=== PATIENT | female | born 1985 | race Caucasian/White ===

== ENCOUNTER 2018-10-30 13:23 | Emergency (ER) | payer OTHER ==
[2018-10-30] MEDS ORDERED: Sodium Chloride 0.9% 1,000 ML IV ONE (13:37)
[2018-10-30] MEDS ORDERED: Ketorolac 30 MG/ML SDV IVPUSH ONE (13:45)
--- NOTE | 2018-10-30 13:51 | EDM.PDOC ---
ED HPI GENERAL MEDICAL PROBLEM - General Chief Complaint: Abdominal Pain Stated Complaint: ABD PAIN Time Seen by Provider: 10/30/18 13:25 Source of Information: Reports: Patient History Limitations: Reports: No Limitations - History of Present Illness INITIAL COMMENTS - FREE TEXT/NARRATIVE: HISTORY AND PHYSICAL: History of present illness: Patient is a 33-year-old female presents to the ED today with concern of right lower quadrant pain. Patient states over the past week she has noticed a dull pain in her right side and starting today the pain is a 10 out of 10. Patient states she's also had diarrhea since the onset of symptoms and is having it every couple hours. Patient states she's felt nauseous and has vomited a few times today. Patient states she does have her gallbladder removed but denies any other abdominal surgeries. Patient states she has a history of tubal ligation. Patient has a history of type 2 diabetes, anxiety, and depression but denies any other health history. Patient states the last time she ate was dinner last night. Patient states she has not been able to eat today. Patient denies fever, chills, chest pain, shortness of breath, or cough. Denies headache, neck stiff ness, change in vision, syncope, or near syncope. Denies dysuria. Has not noted any blood in urine or stool. Patient has been eating and drinking appropriately until today. Review of systems: As per history of present illness and below otherwise all systems reviewed and negative. Past medical history: As per history of present illness and as reviewed below otherwise noncontributory. Surgical history: As per history of present illness and as reviewed below otherwise noncontributory. Social history: See social history for further information Family history: As per history of present illness and as reviewed below otherwise noncontributory. Physical exam: General: Patient is alert, oriented, and in no acute distress. Patient laying comfortably on exam table. Patient is tearful on exam holding her right lower abdomen. HEENT: Atraumatic, normocephalic, pupils equal and reactive bilaterally, negative for conjunctival pallor or scleral icterus, mucous membranes moist, TMs normal bilaterally, throat clear, neck supple, nontender, trachea midline. No drooling or trismus noted. No meningeal signs. No hot potato voice noted. Lungs: Clear to auscultation, breath sounds equal bilaterally, chest nontender. Heart: S1S2, regular rate and rhythm without overt murmur Abdomen: Obese, Soft, nondistended. Moderate pain to palpation of the right lower quadrant with positive rebound tenderness. Negative for masses or hepatosplenomegaly. Negative for costovertebral tenderness. Surgical scars consistent with surgical history. Pelvis: Stable nontender. Genitourinary: Deferred. Rectal: Deferred. Skin: Intact, warm, dry. No lesions or rashes noted. Extremities: Atraumatic, negative for cords or calf pain. Neurovascular unremarkable. Neuro: Awake, alert, oriented. Cranial nerves II through XII unremarkable. Cerebellum unremarkable. Motor and sensory unremarkable throughout. Exam nonfocal. Notes: Dr. Arias verbally involved in patient care. Offered patient admission for observation, serial abdominal exams, but patient declines. Voices understanding and is agreeable to plan of care. Denies any further questions or concerns at this time. Diagnostics: CBC, CMP, lipase, UA, urine hCG, abdominal pelvic CT, stool culture, C. difficile, ova and parasite Therapeutics: Saline, Toradol, morphine Prescription: Diclofenac Impression: RLQ pain unspecified Plan: 1. Take medication as prescribed. You can also use Tylenol as directed for pain and discomfort. 2. Follow-up with your primary care provider as discussed. Return to the ED as needed and as discussed. Definitive disposition and diagnosis as appropriate pending reevaluation and review of above. RLQ Pain Score (Numeric/FACES): 8 - Related Data Allergies Allergy/AdvReac Type Severity Reaction Status Date / Time No Known Allergies Allergy Verified 10/30/18 13:31 Home Meds: Home Meds ALPRAZolam 2 mg PO BID 10/30/18 [History] Acetaminophen with Codeine [Tylenol with Codeine #3 Tablet] 1 - 2 tab PO Q4H PRN 10/30/18 [History] Escitalopram [Lexapro] 10 mg PO DAILY 10/30/18 [History] metFORMIN [Glucophage XR] 2 tab PO DAILY 10/30/18 [History] Past Medical History Psychiatric History: Reports: Anxiety, Depression - Past Surgical History GI Surgical History: Reports: Cholecystectomy Female Surgical History: Reports: Section, Tubal Ligation, Other ( See Below) Other Female Surgeries/Procedures: ovarian cyst Social & Family History - Family History Family Medical History: Noncontributory - Tobacco Use Smoking Status *Q: Current Every Day Smoker Years of Tobacco use: 20 Packs/Tins Daily: 0.5 - Recreational Drug Use Recreational Drug Use: No ED ROS GENERAL - Review of Systems Review Of Systems: ROS reveals no pertinent complaints other than HPI. ED EXAM, GI/ABD - Physical Exam Exam: See Below (See dictation) Course - Vital Signs Last Recorded V/S: Last Vital Signs Temp 36.8 C 10/30/18 14:32 Pulse 81 10/30/18 14:32 Resp 20 10/30/18 13:29 BP 149/82 H 10/30/18 13:29 Pulse Ox 97 10/30/18 14:32 - Orders/Labs/Meds Orders: Active Orders 24 hr Category Date Time Status CDIFF TOX A+B [OP] Stat Lab 10/30/18 13:47 Ordered CULTURE STOOL + CAMPY+SHIGATOX [RM] Stat Lab 10/30/18 13:47 Ordered OVA & PARASITES BY IMMUNOASSAY [MREF] Stat Lab 10/30/18 13:47 Ordered Labs: Laboratory Tests 10/30/18 10/30/18 10/30/18 Range/Units 03:35 03:35 15:10 WBC 12.44 H (4.0-11.0) K/uL RBC 4.57 (4.30-5.90) M/uL Hgb 14.1 (12.0-16.0) g/dL Hct 42.0 (36.0-46.0) % MCV 91.9 (80.0-98.0) fL MCH 30.9 (27.0-32.0) pg MCHC 33.6 (31.0-37.0) g/dL RDW Std Deviation 47.1 (28.0-62.0) fl RDW Coeff of Moses 14 (11.0-15.0) % Plt Count 284 (150-400) K/uL MPV 10.60 (7.40-12.00) fL Neut % (Auto) 60.4 (48.0-80.0) % Lymph % (Auto) 29.8 (16.0-40.0) % Swisher % (Auto) 8.0 (0.0-15.0) % Eos % (Auto) 1.4 (0.0-7.0) % Baso % (Auto) 0.4 (0.0-1.5) % Neut # (Auto) 7.5 H (1.4-5.7) K/uL Lymph # (Auto) 3.7 H (0.6-2.4) K/uL Swisher # (Auto) 1.0 H (0.0-0.8) K/uL Eos # (Auto) 0.2 (0.0-0.7) K/uL Baso # (Auto) 0.1 (0.0-0.1) K/uL Nucleated RBC % 0.0 /100WBC Nucleated RBCs # 0 K/uL Sodium 136 (136-145) mmol/L Potassium 4.2 (3.5-5.1) mmol/L Chloride 102 (98-107) mmol/L Carbon Dioxide 22.1 (21.0-32.0) mmol/L BUN 7 (7.0-18.0) mg/dL Creatinine 0.8 (0.6-1.0) mg/dL Est Cr Clr Drug Dosing 79.11 mL/min Estimated GFR (MDRD) > 60.0 ml/min Glucose 97 (74-106) mg/dL Calcium 9.0 (8.5-10.1) mg/dL Total Bilirubin 0.3 (0.2-1.0) mg/dL AST 23 (15-37) IU/L ALT 52 (14-63) IU/L Alkaline Phosphatase 77 (46-116) U/L Total Protein 8.1 (6.4-8.2) g/dL Albumin 4.0 (3.4-5.0) g/dL Globulin 4.1 H (2.6-4.0) g/dL Albumin/Globulin Ratio 1.0 (0.9-1.6) Lipase 74 (73-393) U/L Urine Color YELLOW Urine Appearance CLEAR Urine pH 6.0 (5.0-8.0) Ur Specific Winchester <= 1.005 (1.001-1.035) Urine Protein NEGATIVE (NEGATIVE) mg/dL Urine Glucose (UA) NEGATIVE (NEGATIVE) mg/dL Urine Ketones NEGATIVE (NEGATIVE) mg/dL Urine Occult Blood NEGATIVE (NEGATIVE) Urine Nitrite NEGATIVE (NEGATIVE) Urine Bilirubin NEGATIVE (NEGATIVE) Urine Urobilinogen 0.2 (<2.0) EU/dL Ur Leukocyte Esterase NEGATIVE (NEGATIVE) Urine HCG, Qual (NEGATIVE) 10/30/18 Range/Units 15:10 WBC (4.0-11.0) K/uL RBC (4.30-5.90) M/uL Hgb (12.0-16.0) g/dL Hct (36.0-46.0) % MCV (80.0-98.0) fL MCH (27.0-32.0) pg MCHC (31.0-37.0) g/dL RDW Std Deviation (28.0-62.0) fl RDW Coeff of Moses (11.0-15.0) % Plt Count (150-400) K/uL MPV (7.40-12.00) fL Neut % (Auto) (48.0-80.0) % Lymph % (Auto) (16.0-40.0) % Swisher % (Auto) (0.0-15.0) % Eos % (Auto) (0.0-7.0) % Baso % (Auto) (0.0-1.5) % Neut # (Auto) (1.4-5.7) K/uL Lymph # (Auto) (0.6-2.4) K/uL Swisher # (Auto) (0.0-0.8) K/uL Eos # (Auto) (0.0-0.7) K/uL Baso # (Auto) (0.0-0.1) K/uL Nucleated RBC % /100WBC Nucleated RBCs # K/uL Sodium (136-145) mmol/L Potassium (3.5-5.1) mmol/L Chloride (98-107) mmol/L Carbon Dioxide (21.0-32.0) mmol/L BUN (7.0-18.0) mg/dL Creatinine (0.6-1.0) mg/dL Est Cr Clr Drug Dosing mL/min Estimated GFR (MDRD) ml/min Glucose (74-106) mg/dL Calcium (8.5-10.1) mg/dL Total Bilirubin (0.2-1.0) mg/dL AST (15-37) IU/L ALT (14-63) IU/L Alkaline Phosphatase (46-116) U/L Total Protein (6.4-8.2) g/dL Albumin (3.4-5.0) g/dL Globulin (2.6-4.0) g/dL Albumin/Globulin Ratio (0.9-1.6) Lipase (73-393) U/L Urine Color Urine Appearance Urine pH (5.0-8.0) Ur Specific W[place]ster (1.001-1.035) Urine Protein (NEGATIVE) mg/dL Urine Glucose (UA) (NEGATIVE) mg/dL Urine Ketones (NEGATIVE) mg/dL Urine Occult Blood (NEGATIVE) Urine Nitrite (NEGATIVE) Urine Bilirubin (NEGATIVE) Urine Urobilinogen (<2.0) EU/dL Ur Leukocyte Esterase (NEGATIVE) Urine HCG, Qual NEGATIVE (NEGATIVE) Meds: Medications Discontinued Medications Generic Name Dose Route Start Last Admin Trade Name Melissa PRN Reason Stop Dose Admin Sodium Chloride 1,000 mls @ 999 mls/hr 10/30/18 13:37 10/30/18 14:03 Normal Saline IV 10/30/18 14:37 999 mls/hr BOLUS ONE Administration Ketorolac Tromethamine 30 mg 10/30/18 13:45 10/30/18 14:03 Toradol IVPUSH 10/30/18 13:46 30 mg ONETIME ONE Administration Morphine Sulfate 2 mg 10/30/18 15:02 10/30/18 15:13 Morphine IVPUSH 10/30/18 15:03 2 mg ONETIME ONE Administration Departure - Departure Time of Disposition: 15:35 Disposition: Home, Self-Care 01 Clinical Impression: Right lower quadrant abdominal pain - Discharge Information Referrals: PCP,None [Primary Care Provider] - Forms: ED Department Discharge Additional Instructions: The following information is given to patients seen in the emergency department who are being discharged to home. This information is to outline your options for follow-up care. We provide all patients seen in our emergency department with a follow-up referral. The need for follow-up, as well as the timing and circumstances, are variable depending upon the specifics of your emergency department visit. If you don't have a primary care physician on staff, we will provide you with a referral. We always advise you to contact your personal physician following an emergency department visit to inform them of the circumstance of the visit and for follow-up with them and/or the need for any referrals to a consulting specialist. The emergency department will also refer you to a specialist when appropriate. This referral assures that you have the opportunity for follow-up care with a specialist. All of these measure are taken in an effort to provide you with optimal care, which includes your follow-up. Under all circumstances we always encourage you to contact your private physician who remains a resource for coordinating your care. When calling for follow-up care, please make the office aware that this follow-up is from your recent emergency room visit. If for any reason you are refused follow-up, please contact the [facility] Emergency Department at and asked to speak to the emergency department charge nurse. [facility] [address] [place] [address] [facility] [address] [place] [id number] 1. Take medication as prescribed. You can also use Tylenol as directed for pain and discomfort. 2. Follow-up with your primary care provider as discussed. Return to the ED as needed and as discussed. - My Orders Last 24 Hours: My Active Orders 10/30/18 13:47 CDIFF TOX A+B [OP] Stat CULTURE STOOL + CAMPY+SHIGATOX [RM] Stat OVA & PARASITES BY IMMUNOASSAY [MREF] Stat - Assessment/Plan Last 24 Hours: My Active Orders 10/30/18 13:47 CDIFF TOX A+B [OP] Stat CULTURE STOOL + CAMPY+SHIGATOX [RM] Stat OVA & PARASITES BY IMMUNOASSAY [MREF] Stat
[2018-10-30 14:18] LABS: CHLORIDE,CL 102 mmol/L (98-107); SODIUM,NA 136 mmol/L (136-145)
[2018-10-30] MEDS ORDERED: Morphine 2 MG/ML Syringe IVPUSH ONE (15:02)
--- NOTE | 2018-10-30 15:23 | CT ---
INDICATION: Right lower quadrant pain TECHNIQUE: CT abdomen and pelvis acquired with 100 cc Isovue 370 IV contrast. COMPARISON: None FINDINGS: Lower chest: Unremarkable. Liver: Unremarkable. Spleen: Unremarkable. Pancreas: Unremarkable. Gallbladder and bile ducts: S/p cholecystectomy. Adrenal glands: Unremarkable. Kidneys: Unremarkable. GI tract: Unremarkable. Appendix is not visualized but no inflammatory changes seen in the right lower quadrant. Vascular structures: Unremarkable. Lymph nodes: Unremarkable. Miscellaneous: Small fat containing umbilical hernia. No free air or significant free fluid. Pelvic Organs: Unremarkable. Bones: Unremarkable for age. IMPRESSION: The appendix is not visualized but no inflammatory changes seen in the right lower quadrant. No etiology seen to explain right lower quadrant pain. Status post cholecystectomy. Please note that all CT scans at this facility use dose modulation, iterative reconstruction, and/or weight-based dosing when appropriate to reduce radiation dose to as low as reasonably achievable. Dictated by Lily Sepulveda MD @ Oct 30 2018 3:22PM Signed by Dr. Lily Sepulveda @ Oct 30 2018 3:22PM
[2018-10-30] MEDS ORDERED: Iopamidol 755 MG/ML 500 ML Multipack Bottle IVPUSH STA (19:09)
== END 2018-10-30 16:14 | disposition home or self-care (01) ==
LOC: MW.ED 13:23
DX: R10.31 Right lower quadrant pain (principal); F17.210 Nicotine dependence, cigarettes, uncomplicated; Z79.899 Other long term (current) drug therapy
CPT/HCPCS: 36415; 74177; 80053; 81003; 81025; 83690; 85025; 96361; 96374; 96375; 99284; J1885; J2270; J7040; Q9967; 99283

== ENCOUNTER 2019-03-19 14:25 | Emergency (ER) | payer OTHER ==
--- NOTE | 2019-03-19 14:37 | EDM.PDOC ---
ED HPI GENERAL MEDICAL PROBLEM - General Chief Complaint: Upper Extremity Injury/Pain Stated Complaint: INJURED RT ARM Time Seen by Provider: 03/19/19 14:27 Source of Information: Reports: Patient History Limitations: Reports: No Limitations - History of Present Illness INITIAL COMMENTS - FREE TEXT/NARRATIVE: HISTORY AND PHYSICAL: History of present illness: Patient is a 33-year-old female presenting to the emergency room for complaints of "right elbow pain". Patient states that she works at [employer] and while at work this afternoon she was carrying in an "82 inch TV, tripped, and fell on my right elbow/arm". Patient denies hitting her head or loss of consciousness. Patient currently rates her pain in her right arm and elbow at a 6 out of 10, describing it as "aching". Movement aggravates the pain, while keeping her arm in a fixed position stabilizes the pain. Patient denies chance of that she has had "a tubal". Patient denies any fever, chills, headache, change in vision, syncope or near syncope. Denies any chest pain, back pain, shortness of breath or cough. Denies any abdominal pain, nausea, vomiting, diarrhea, constipation or dysuria. Has not noted any blood in urine or stool. Patient has been eating and drinking appropriately. Review of systems: As per history of present illness and below otherwise all systems reviewed and negative. Past medical history: As per history of present illness and as reviewed below otherwise noncontributory. Surgical history: As per history of present illness and as reviewed below otherwise noncontributory. Social history: See social history for further information Family history: As per history of present illness and as reviewed below otherwise noncontributory. Physical exam: General: Well-developed and well-nourished 33-year-old female. Alert and oriented. Nontoxic appearing and no acute distress. Vital signs have been reviewed by me. HEENT: Atraumatic, normocephalic, pupils equal and reactive bilaterally, negative for conjunctival pallor or scleral icterus, mucous membranes moist, trachea midline. No drooling or trismus noted. No meningeal signs. No hot potato voice noted. Lungs: Clear to auscultation, breath sounds equal bilaterally, chest nontender. Heart: S1S2, regular rate and rhythm without overt murmur Abdomen: Soft, nondistended, nontender. Negative for masses. Negative for costovertebral tenderness. Pelvis: Stable nontender. Skin: No lesions or rashes noted. Minor bruising to the right elbow approximately the size of a quarter, with localized soft tissue swelling. Extremities: Limited ROM of the right elbow due to pain, pinpoint tenderness at the elbow and just distal to the olecranon. Moves all other extremities per self without difficulty or deficits. Neurovascular unremarkable. Neuro: Awake, alert, oriented. Cranial nerves II through XII unremarkable. Cerebellum unremarkable. Motor and sensory unremarkable throughout. Exam nonfocal. Notes: X-ray shows a small bony density off the coroniod process. Uncertain if this is old or acute. This finding was shared with the patient. She was given a sling and instructions to follow-up with the orthopedic provider. Supportive care measures were reviewed and discussed. Voices understanding and is agreeable to plan of care. Denies any further questions or concerns at this time. Diagnostics: Elbow and Forearm x-ray Therapeutics: Sling Prescription: Toradol (#15) Impression: Right elbow injury Plan: 1. Rest, ice, elevate the affected extremity. Please wear the splint as directed. 2. Tylenol and/or Ibuprofen as needed for pain management. 3. Follow up with the Orthopedic provider as we discussed. Return to the ED as needed and as discussed. Definitive disposition and diagnosis as appropriate pending reevaluation and review of above. right arm Pain Score (Numeric/FACES): 8 - Related Data Allergies Allergy/AdvReac Type Severity Reaction Status Date / Time No Known Allergies Allergy Verified 03/19/19 14:29 Home Meds: Home Meds ALPRAZolam 2 mg PO BID 10/30/18 [History] Escitalopram [Lexapro] 10 mg PO DAILY 10/30/18 [History] metFORMIN [Glucophage XR] 2 tab PO DAILY 10/30/18 [History] Past Medical History Psychiatric History: Reports: Anxiety, Depression - Past Surgical History GI Surgical History: Reports: Cholecystectomy Female Surgical History: Reports: Section, Tubal Ligation, Other ( See Below) Other Female Surgeries/Procedures: ovarian cyst Social & Family History - Family History Family Medical History: Noncontributory Review of Systems - Review of Systems Review Of Systems: ROS reveals no pertinent complaints other than HPI. ED EXAM, GENERAL - Physical Exam Exam: See Below (See dictation) Course - Vital Signs Last Recorded V/S: Last Vital Signs Temp 96.8 F 03/19/19 14:30 Pulse 94 03/19/19 14:30 Resp 18 03/19/19 14:30 BP 123/82 03/19/19 14:30 Pulse Ox 99 03/19/19 14:30 - Orders/Labs/Meds Meds: Medications Discontinued Medications Generic Name Dose Route Start Last Admin Trade Name Freq PRN Reason Stop Dose Admin Ketorolac Tromethamine 60 mg 03/19/19 15:07 03/19/19 15:22 Toradol IM 03/19/19 15:08 60 mg ONETIME ONE Administration Departure - Departure Time of Disposition: 15:43 Disposition: Home, Self-Care 01 Clinical Impression: Injury of right elbow Qualifiers: Encounter type: initial encounter Qualified Code(s): S59.901A - Unspecified injury of right elbow, initial encounter - Discharge Information Referrals: Devante Jorgensen MD [Primary Care Provider] - Forms: ED Department Discharge Additional Instructions: The following information is given to patients seen in the emergency department who are being discharged to home. This information is to outline your options for follow-up care. We provide all patients seen in our emergency department with a follow-up referral. The need for follow-up, as well as the timing and circumstances, are variable depending upon the specifics of your emergency department visit. If you don't have a primary care physician on staff, we will provide you with a referral. We always advise you to contact your personal physician following an emergency department visit to inform them of the circumstance of the visit and for follow-up with them and/or the need for any referrals to a consulting specialist. The emergency department will also refer you to a specialist when appropriate. This referral assures that you have the opportunity for follow-up care with a specialist. All of these measure are taken in an effort to provide you with optimal care, which includes your follow-up. Under all circumstances we always encourage you to contact your private physician who remains a resource for coordinating your care. When calling for follow-up care, please make the office aware that this follow-up is from your recent emergency room visit. If for any reason you are refused follow-up, please contact the [facility] Emergency Department at and asked to speak to the emergency department charge nurse. [facility] [address] [place] [address] [id number] [facility] Professional [facility] [address] [place] [address], [address] [place] [address] 1. Rest, ice, elevate the affected extremity. Please wear the sling as directed. 2. Tylenol and/or Ibuprofen as needed for pain management. 3. Follow up with the Orthopedic provider as we discussed. Return to the ED as needed and as discussed.
[2019-03-19] MEDS ORDERED: Ketorolac 60 MG/2 ML SDV IM ONE (15:07)
--- NOTE | 2019-03-19 15:34 | CR ---
Right elbow: Three views of the right elbow were obtained. Comparison: No prior right elbow exam. Joint spaces are preserved. Small bony density is seen off the coronoid process. Uncertain if this is acute or old. No additional fracture or other bony abnormality is seen. No joint effusion is seen. Impression: 1. Small bony density off the coronoid process. As mentioned above, uncertain if this is old or acute. 2. Other portions of the right elbow study are unremarkable. Diagnostic code #3 MTDD
--- NOTE | 2019-03-19 15:35 | CR ---
Right forearm: Two views of the right forearm were obtained. Comparison: No previous forearm study. Small bony density is again noted off the coronoid process. No acute fracture or other bony abnormality is seen. Impression: 1. Small bony density off the coronoid process as described on elbow study. 2. Right forearm study is otherwise unremarkable. Diagnostic code #2 MTDD
== END 2019-03-19 16:05 | disposition home or self-care (01) ==
LOC: MW.ED 14:25
DX: S59.901A Unspecified injury of right elbow, initial encounter (principal); F41.9 Anxiety disorder, unspecified; F32.9 Major depressive disorder, single episode, unspecified; Z79.899 Other long term (current) drug therapy; W01.0XXA Fall on same level from slipping, tripping and stumbling without subsequent striking against object, initial encounter; Y93.89 Activity, other specified; Y92.89 Other specified places as the place of occurrence of the external cause; Y99.0 Civilian activity done for income or pay
CPT/HCPCS: 73080; 73090; 96372; 99283; J1885

== ENCOUNTER 2019-03-20 16:13 | Emergency (ER) | payer OTHER ==
[2019-03-20] MEDS ORDERED: traMADol 50 MG Tab PO ONE (17:17)
--- NOTE | 2019-03-20 17:19 | EDM.PDOC ---
ED HPI GENERAL MEDICAL PROBLEM - General Chief Complaint: Upper Extremity Injury/Pain Stated Complaint: RIGHT SHOULDEER PAIN Time Seen by Provider: 03/20/19 16:58 Source of Information: Reports: Patient History Limitations: Reports: No Limitations - History of Present Illness INITIAL COMMENTS - FREE TEXT/NARRATIVE: HISTORY AND PHYSICAL: History of present illness: Patient is a 33-year-old female who presents to the ED today with concern of right arm pain and pain management. Patient was seen and evaluated in the ED yesterday after a fall that occurred when patient was at work. Patient was put in a splint and instructed to follow-up with an orthopedic provider and was given Toradol for pain management. 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 Patient states she's taken 3 doses of Toradol today with only mild relief of symptoms. Patient states she did try to ice her arm once last night but has not continued to ice the arm. Patient denies taking anything else for pain management at this time. Patient denies any new or change in symptoms. Patient denies any new injury or trauma to the arm. Patient states she did call to set up an appointment with the orthopedic provider and has an appointment in 2 weeks. Patient states she did ask them for pain medication but they were unwilling to give her pain medication at this time. Patient denies fever, chills, chest pain, shortness of breath, or cough. Denies headache, neck stiff ness, change in vision, syncope, or near syncope. Denies nausea, vomiting, abdominal pain, diarrhea, constipation, or dysuria. Has not noted any blood in urine or stool. Patient has been eating and drinking appropriately. Review of systems: As per history of present illness and below otherwise all systems reviewed and negative. Past medical history: As per history of present illness and as reviewed below otherwise noncontributory. Surgical history: As per history of present illness and as reviewed below otherwise noncontributory. Social history: See social history for further information Family history: As per history of present illness and as reviewed below otherwise noncontributory. Physical exam: General: Patient is alert, oriented, and in no acute distress. Patient sitting comfortably on exam table. HEENT: Atraumatic, normocephalic, pupils equal and reactive bilaterally, negative for conjunctival pallor or scleral icterus, mucous membranes moist, TMs normal bilaterally, throat clear, neck supple, nontender, trachea midline. No drooling or trismus noted. No meningeal signs. No hot potato voice noted. Lungs: Clear to auscultation, breath sounds equal bilaterally, chest nontender. Heart: S1S2, regular rate and rhythm without overt murmur Abdomen: Soft, nondistended, nontender. Negative for masses or hepatosplenomegaly. Negative for costovertebral tenderness. Pelvis: Stable nontender. Genitourinary: Deferred. Rectal: Deferred. Skin: Intact, warm, dry. No lesions or rashes noted. Extremities: Negative for cords or calf pain. Neurovascular unremarkable. Patient does have a shoulder sling in place of the right upper extremity. Some mild edema of the right hand. Radial pulses intact via Doppler with capillary refill less than 2 seconds of the right upper extremity. Neuro: Awake, alert, oriented. Cranial nerves II through XII unremarkable. Cerebellum unremarkable. Motor and sensory unremarkable throughout. Exam nonfocal. Notes: Discussed the importance for follow-up with an orthopedic provider. Voices understanding and is agreeable to plan of care. Denies any further questions or concerns at this time. Diagnostics: None Therapeutics: Tramadol Prescription: None Impression: Encounter for pain management Plan: 1. Rest, ice, elevate the affected extremity. You can apply ice 15 minutes on, 15 minutes off. Keep the arm in the sling and do not continue to use the arm and Tylenol follow-up with Ortho. 2. Tylenol as directed for pain management or discomfort. Take medication as priorly prescribed to you. 3. Follow up with the Orthopedic provider as scheduled and as discussed. Return to the ED as needed and as discussed. Definitive disposition and diagnosis as appropriate pending reevaluation and review of above. right lower arm Pain Score (Numeric/FACES): 7 - Related Data Allergies Allergy/AdvReac Type Severity Reaction Status Date / Time No Known Allergies Allergy Verified 03/20/19 16:54 Home Meds: Home Meds ALPRAZolam 2 mg PO BID 10/30/18 [History] Escitalopram [Lexapro] 10 mg PO DAILY 10/30/18 [History] metFORMIN [Glucophage XR] 2 tab PO DAILY 10/30/18 [History] Ketorolac [Toradol] 10 mg PO TID PRN #20 tab 03/19/19 [Rx] Past Medical History HEENT History: Reports: None Cardiovascular History: Reports: None Respiratory History: Reports: None Gastrointestinal History: Reports: None Genitourinary History: Reports: None [employer] 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 Musculoskeletal History: Reports: None Neurological History: Reports: None Psychiatric History: Reports: Anxiety, Depression Endocrine/Metabolic History: Reports: None Hematologic History: Reports: None Immunologic History: Reports: None Oncologic (Cancer) History: Reports: None Dermatologic History: Reports: None - Past Surgical History Head Surgeries/Procedures: Reports: None HEENT Surgical History: Reports: None Cardiovascular Surgical History: Reports: None Respiratory Surgical History: Reports: None GI Surgical History: Reports: Cholecystectomy Female Surgical History: Reports: Section, Tubal Ligation, Other ( See Below) Other Female Surgeries/Procedures: ovarian cyst Endocrine Surgical History: Reports: None Neurological Surgical History: Reports: None Musculoskeletal Surgical History: Reports: None Oncologic Surgical History: Reports: None Dermatological Surgical History: Reports: None Social & Family History - Family History Family Medical History: Noncontributory - Tobacco Use Smoking Status *Q: Current Every Day Smoker Years of Tobacco use: 14 Packs/Tins Daily: 0.5 - Caffeine Use Caffeine Use: Reports: Coffee - Recreational Drug Use Recreational Drug Use: No Review of Systems - Review of Systems Review Of Systems: ROS reveals no pertinent complaints other than HPI. ED EXAM, GENERAL - Physical Exam Exam: See Below (See dictation) Course - Vital Signs Last Recorded V/S: Last Vital Signs Temp 98.2 F 03/20/19 16:52 Pulse 84 03/20/19 16:52 Resp 18 03/20/19 16:52 BP 129/74 03/20/19 16:52 Pulse Ox 99 03/20/19 16:52 - Orders/Labs/Meds Orders: Active Orders 24 hr Category Date Time Status Shoulder Comp Rt [CR] Stat Exams 03/20/19 16:54 Stop Req Meds: Medications Discontinued Medications Generic Name Dose Route Start Last Admin Trade Name Freq PRN Reason Stop Dose Admin Tramadol HCl 50 mg 03/20/19 17:17 03/20/19 17:27 Ultram PO 03/20/19 17:18 50 mg ONETIME ONE Administration Departure - Departure Time of Disposition: 17:18 Disposition: Home, Self-Care 01 Clinical Impression: Encounter for pain management - Discharge Information Referrals: PCP,Unknown [Primary Care Provider] - Forms: ED Department Discharge Additional Instructions: The following information is given to patients seen in the emergency department who are being discharged to home. This information is to outline your options for follow-up care. We provide all patients seen in our emergency department with a follow-up referral. The need for follow-up, as well as the timing and circumstances, are variable depending upon the specifics of your emergency department visit. If you don't have a primary care physician on staff, we will provide you with a referral. We always advise you to contact your personal physician following an emergency department visit to inform them of the circumstance of the visit and for follow-up with them and/or the need for any referrals to a consulting specialist. The emergency department will also refer you to a specialist when appropriate. This referral assures that you have the opportunity for follow-up care with a specialist. All of these measure are taken in an effort to provide you with optimal care, which includes your follow-up. Under all circumstances we always encourage you to contact your private physician who remains a resource for coordinating your care. When calling for follow-up care, please make the office aware that this follow-up is from your recent emergency room visit. If for any reason you are refused follow-up, please contact the [facility] Emergency Department at and asked to speak to the emergency department charge nurse. [facility] [address] [place] [id number] [address] [facility] Professional [facility] [address] [place] [address], [address] [place] [address] Dr Plasencia, Orthopedist [facility] [address] [place] [address] Dr Newman - Dr Penaloza - Dr Moss [facility] [address] [place] [address] [facility] [address] [place], [place] [address] 1. Rest, ice, elevate the affected extremity. You can apply ice 15 minutes on, 15 minutes off. Keep the arm in the sling and do not continue to use the arm and Tylenol follow-up with Ortho. 2. Tylenol as directed for pain management or discomfort. Take medication as priorly prescribed to you. 3. Follow up with the Orthopedic provider as scheduled and as discussed. Return to the ED as needed and as discussed.
== END 2019-03-20 17:38 | disposition home or self-care (01) ==
LOC: MW.ED 16:13
DX: G89.11 Acute pain due to trauma (principal); M25.511 Pain in right shoulder; F32.9 Major depressive disorder, single episode, unspecified; F41.9 Anxiety disorder, unspecified; F17.210 Nicotine dependence, cigarettes, uncomplicated; Z79.899 Other long term (current) drug therapy
CPT/HCPCS: 99282; A9270

== ENCOUNTER 2019-09-18 11:40 | Emergency (ER) | payer OTHER ==
--- NOTE | 2019-09-18 12:02 | EDM.PDOC ---
ED HPI GENERAL MEDICAL PROBLEM - General Chief Complaint: Upper Extremity Injury/Pain Stated Complaint: LT SHOULDER PAIN Time Seen by Provider: 09/18/19 11:41 Source of Information: Reports: Patient History Limitations: Reports: No Limitations - History of Present Illness INITIAL COMMENTS - FREE TEXT/NARRATIVE: HISTORY AND PHYSICAL: History of present illness: Patient is a 34-year-old female who presents to the emergency room with complaints of left shoulder pain. 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 She has been using Tylenol and diclofenac that she has available to her at home but does not feel that the pain is improving. Besides the heavy weight in her arm she had no physical injuries such as falling or hitting anything. She does have full range of motion and denies any numbness or tingling of the affected extremity. She denies any weakness. She states that any use of her left shoulder she has increased pain and does occasionally have sharp shooting pains go down her arm. Offers no systemic complaints. Review of systems: As per history of present illness and below otherwise all systems reviewed and negative. Past medical history: As per history of present illness and as reviewed below otherwise noncontributory. Surgical history: As per history of present illness and as reviewed below otherwise noncontributory. Social history: See social history for further information Family history: As per history of present illness and as reviewed below otherwise noncontributory. Physical exam: General: Developed and well-nourished 34-year-old female. Alert and oriented. Nontoxic-appearing and in no acute distress. HEENT: Atraumatic, normocephalic, pupils equal and reactive bilaterally, negative for conjunctival pallor or scleral icterus, mucous membranes moist, trachea midline. No drooling or trismus noted. No meningeal signs. No hot potato voice noted. Lungs: Clear to auscultation, breath sounds equal bilaterally, chest nontender. Heart: S1S2, regular rate and rhythm without overt murmur Abdomen: Soft, nondistended, nontender. Skin: Intact, warm, dry. No lesions or rashes noted. Extremities: She moves all extremities per self without difficulty or deficits , able to resist and push against me with equal strength bilaterally strong hand grasp. Able to pour the can test bilaterally, although does cause some pain. Radial pulse. Cap refill less than 3 seconds neurovascular unremarkable. Neuro: Awake, alert, oriented. Cranial nerves II through XII unremarkable. Cerebellum unremarkable. Motor and sensory unremarkable throughout. Exam nonfocal. Notes: At this time I do not feel an x-ray is warranted. We will do a steroid and a muscle relaxer and like her to continue taking her diclofenac. We discussed that she may have some nerve impingement or rotator cuff involvement that will require orthopedic involvement. She is understanding that she may need an MRI if the pain does not improve, although this cannot be done in the ER today. We will give her a sling to help support the left shoulder as we are treating her for a strain. Supportive care measures were reviewed and discussed. Voices understanding and is agreeable to plan of care. Denies any further questions or concerns at this time. Diagnostics: None Therapeutics: Sling Prescription: Flexeril, Medrol Impression: Left shoulder strain Plan: 1. Rest, ice, elevate the affected extremity. Please wear the splint as directed. 2. Tylenol and/or Ibuprofen as needed for pain management. 3. Follow up with the Orthopedic provider as we discussed. Return to the ED as needed and as discussed. Definitive disposition and diagnosis as appropriate pending reevaluation and review of above. - Related Data Allergies Allergy/AdvReac Type Severity Reaction Status Date / Time No Known Allergies Allergy Verified 09/18/19 12:03 Home Meds: Home Meds ALPRAZolam 2 mg PO BID 10/30/18 [History] Escitalopram [Lexapro] 10 mg PO DAILY 10/30/18 [History] metFORMIN [Glucophage XR] 2 tab PO DAILY 10/30/18 [History] Cyclobenzaprine [Flexeril] 10 mg PO TID PRN #21 tab 09/18/19 [Rx] Diclofenac Sodium [Voltaren] 50 mg PO BID 09/18/19 [History] methylPREDNISolone [Medrol] 1 dose PO DAILY 6 Days #1 dospk 09/18/19 [Rx] Past Medical History HEENT History: Reports: None Cardiovascular History: Reports: None Respiratory History: Reports: None Gastrointestinal History: Reports: None Genitourinary History: Reports: None [employer] 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 Musculoskeletal History: Reports: None Neurological History: Reports: None Psychiatric History: Reports: Anxiety, Depression Endocrine/Metabolic History: Reports: None Hematologic History: Reports: None Immunologic History: Reports: None Oncologic (Cancer) History: Reports: None Dermatologic History: Reports: None - Past Surgical History Head Surgeries/Procedures: Reports: None HEENT Surgical History: Reports: None Cardiovascular Surgical History: Reports: None Respiratory Surgical History: Reports: None GI Surgical History: Reports: Cholecystectomy Female Surgical History: Reports: Section, Tubal Ligation, Other ( See Below) Other Female Surgeries/Procedures: ovarian cyst Endocrine Surgical History: Reports: None Neurological Surgical History: Reports: None Musculoskeletal Surgical History: Reports: None Oncologic Surgical History: Reports: None Dermatological Surgical History: Reports: None Social & Family History - Family History Family Medical History: Noncontributory - Caffeine Use Caffeine Use: Reports: Coffee Review of Systems - Review of Systems Review Of Systems: Comprehensive ROS is negative, except as noted in HPI. ED EXAM, GENERAL - Physical Exam Exam: See Below (See dictation) Course - Vital Signs Last Recorded V/S: Last Vital Signs Temp 98.0 F 09/18/19 11:59 Pulse 88 09/18/19 11:59 Resp 17 09/18/19 11:59 BP 132/75 09/18/19 11:59 Pulse Ox 98 09/18/19 11:59 - Orders/Labs/Meds Orders: Active Orders 24 hr Category Date Time Status DME for Discharge [COMM] Stat Oth 09/18/19 12:04 Ordered Departure - Departure Time of Disposition: 12:02 Disposition: Home, Self-Care 01 Clinical Impression: Left shoulder strain Qualifiers: Encounter type: initial encounter Qualified Code(s): S46.912A - Strain of unspecified muscle, fascia and tendon at shoulder and upper arm level, left arm , initial encounter - Discharge Information Prescriptions: Cyclobenzaprine [Flexeril] 10 mg PO TID PRN #21 tab PRN Reason: Muscle Spasm methylPREDNISolone [Medrol] 1 dose PO DAILY 6 Days #1 dospk Instructions: Muscle Strain, [id number] Referrals: Devante Jorgensen MD [Primary Care Provider] - Forms: ED Department Discharge Additional Instructions: The following information is given to patients seen in the emergency department who are being discharged to home. This information is to outline your options for follow-up care. We provide all patients seen in our emergency department with a follow-up referral. The need for follow-up, as well as the timing and circumstances, are variable depending upon the specifics of your emergency department visit. If you don't have a primary care physician on staff, we will provide you with a referral. We always advise you to contact your personal physician following an emergency department visit to inform them of the circumstance of the visit and for follow-up with them and/or the need for any referrals to a consulting specialist. The emergency department will also refer you to a specialist when appropriate. This referral assures that you have the opportunity for follow-up care with a specialist. All of these measure are taken in an effort to provide you with optimal care, which includes your follow-up. Under all circumstances we always encourage you to contact your private physician who remains a resource for coordinating your care. When calling for follow-up care, please make the office aware that this follow-up is from your recent emergency room visit. If for any reason you are refused follow-up, please contact the [facility] Emergency Department at and asked to speak to the emergency department charge nurse. [facility] [address] [place] [address] [place] [address] 1. Rest, ice, elevate the affected extremity. Please wear the splint as directed. 2. Tylenol as needed for pain management. Please take the prescriptions as directed. Take your home Diclofenac as prescribed, routinely with food for the next 3-5 days. Do not take any additional NSAIDs with the medication such as Aleve or Ibuprofen 3. Follow up with the Orthopedic provider as we discussed. Return to the ED as needed and as discussed. Sepsis Event Note - Focused Exam Vital Signs: Vital Signs Temp Pulse Resp BP Pulse Ox 09/18/19 11:59 98.0 F 88 17 132/75 98 Date Exam was Performed: 09/18/19 Time Exam was Performed: 12:05 - My Orders Last 24 Hours: My Active Orders 09/18/19 12:04 DME for Discharge [COMM] Stat - Assessment/Plan Last 24 Hours: My Active Orders 09/18/19 12:04 DME for Discharge [COMM] Stat
== END 2019-09-18 12:18 | disposition home or self-care (01) ==
LOC: EDBD 11:40 → MW.ED 11:40
DX: S46.912A Strain of unspecified muscle, fascia and tendon at shoulder and upper arm level, left arm, initial encounter (principal); F41.9 Anxiety disorder, unspecified; F32.9 Major depressive disorder, single episode, unspecified; Z79.84 Long term (current) use of oral hypoglycemic drugs; Z79.899 Other long term (current) drug therapy; X50.9XXA Other and unspecified overexertion or strenuous movements or postures, initial encounter; Y99.0 Civilian activity done for income or pay
CPT/HCPCS: 99283

== ENCOUNTER 2019-09-26 15:31 | Emergency (ER) | payer OTHER ==
[2019-09-26] MEDS ORDERED: Acetaminophen/HYDROcodone 325-10 MG Tab PO ONE (15:44)
--- NOTE | 2019-09-26 16:29 | EDM.PDOC ---
ED HPI GENERAL MEDICAL PROBLEM - General Chief Complaint: Upper Extremity Injury/Pain Stated Complaint: RETURNING FOR INJURED SHOULDER Time Seen by Provider: 09/26/19 15:37 - History of Present Illness INITIAL COMMENTS - FREE TEXT/NARRATIVE: 34-year-old female presents with persistent left shoulder pain after hearing and feeling a pop while lifting and moving very heavy furniture at work. She was initially seen here approximately 1 week ago and was discharged with Flexeril, ibuprofen, prednisone. She has had persistent severe pain she did follow-up with her orthopedic surgeon a few days ago. She is slated for an MRI within in 6 days. She presents due to pain not responsive to medications at home. Pain is gradually worsening it worsens now with any range of motion of the left shoulder. It does not radiate and there are no associated symptoms. - Related Data Allergies Allergy/AdvReac Type Severity Reaction Status Date / Time No Known Allergies Allergy Verified 09/18/19 12:03 Home Meds: Home Meds ALPRAZolam 2 mg PO BID 10/30/18 [History] Escitalopram [Lexapro] 10 mg PO DAILY 10/30/18 [History] metFORMIN [Glucophage XR] 2 tab PO DAILY 10/30/18 [History] Cyclobenzaprine [Flexeril] 10 mg PO TID PRN #21 tab 09/18/19 [Rx] Diclofenac Sodium [Voltaren] 50 mg PO BID 09/18/19 [History] methylPREDNISolone [Medrol] 1 dose PO DAILY 6 Days #1 dospk 09/18/19 [Rx] Hydrocodone/Acetaminophen [Hydrocodone-Acetamin 10-325 mg] 1 each PO Q6HR #20 tablet 09/26/19 [Rx] Past Medical History HEENT History: Reports: None Cardiovascular History: Reports: None Respiratory History: Reports: None Gastrointestinal History: Reports: None Genitourinary History: Reports: None 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 Musculoskeletal History: Reports: None Neurological History: Reports: None Psychiatric History: Reports: Anxiety, Depression Endocrine/Metabolic History: Reports: None Hematologic History: Reports: None Immunologic History: Reports: None Oncologic (Cancer) History: Reports: None Dermatologic History: Reports: None - Infectious Disease History Infectious Disease History: Reports: None - Past Surgical History Head Surgeries/Procedures: Reports: None HEENT Surgical History: Reports: None Cardiovascular Surgical History: Reports: None Respiratory Surgical History: Reports: None GI Surgical History: Reports: Cholecystectomy Female Surgical History: Reports: Section, Tubal Ligation, Other ( See Below) Other Female Surgeries/Procedures: ovarian cyst Endocrine Surgical History: Reports: None Neurological Surgical History: Reports: None Musculoskeletal Surgical History: Reports: None Oncologic Surgical History: Reports: None Dermatological Surgical History: Reports: None Social & Family History - Family History Family Medical History: Noncontributory - Caffeine Use Caffeine Use: Reports: Coffee Review of Systems - Review of Systems Review Of Systems: See Below Constitutional: Denies: Chills, Fever Eyes: Denies: Blurred Vision Mouth/Throat: Denies: Painful Swallowing Respiratory: Denies: Shortness of Breath Cardiovascular: Denies: Chest Pain GI/Abdominal: Denies: Abdominal Pain Musculoskeletal: Reports: Shoulder Pain ED EXAM, GENERAL - Physical Exam Exam: See Below Free Text/Narrative:: General Appearance: No acute distress, appears comfortable Skin: No rash HEENT: Normocephalic/atraumatic, sclera anicteric, mucous membranes moist Neck: Normal range of motion Musculoskeletal: 2+ left radial pulse no focal tenderness or deformity or limitation in range of motion of the left digits or wrist or elbow. Significant pain in the left shoulder but able to passively rotate the shoulder. Neurologic: Awake, alert, no obvious deficits, moving all extremities Psychiatric: Appropriate, cooperative Course - Vital Signs Last Recorded V/S: Last Vital Signs Temp 97.2 F 09/26/19 15:42 Pulse 94 09/26/19 17:10 Resp 16 09/26/19 17:10 BP 110/62 09/26/19 17:10 Pulse Ox 97 09/26/19 17:10 - Orders/Labs/Meds Meds: Medications Discontinued Medications Generic Name Dose Route Start Last Admin Trade Name Freq PRN Reason Stop Dose Admin Hydrocodone Bitart/Acetaminophen 1 tab 09/26/19 15:44 09/26/19 16:16 [place] 325-10 Mg PO 09/26/19 15:45 1 tab ONETIME ONE Administration Departure - Departure Time of Disposition: 17:40 Disposition: Home, Self-Care 01 Condition: Good Clinical Impression: Rotator cuff (capsule) sprain - Discharge Information *PRESCRIPTION DRUG MONITORING PROGRAM REVIEWED*: Not Applicable *COPY OF PRESCRIPTION DRUG MONITORING REPORT IN PATIENT MONICA: Not Applicable Prescriptions: Hydrocodone/Acetaminophen [Hydrocodone-Acetamin 10-325 mg] 1 each PO Q6HR #20 tablet Instructions: Rotator Cuff Tear Referrals: Devante Jorgensen MD [Primary Care Provider] - Forms: ED Department Discharge Additional Instructions: The following information is given to patients seen in the emergency department who are being discharged to home. This information is to outline your options for follow-up care. We provide all patients seen in our emergency department with a follow-up referral. The need for follow-up, as well as the timing and circumstances, are variable depending upon the specifics of your emergency department visit. If you don't have a primary care physician on staff, we will provide you with a referral. We always advise you to contact your personal physician following an emergency department visit to inform them of the circumstance of the visit and for follow-up with them and/or the need for any referrals to a consulting specialist. The emergency department will also refer you to a specialist when appropriate. This referral assures that you have the opportunity for follow-up care with a specialist. All of these measure are taken in an effort to provide you with optimal care, which includes your follow-up. Under all circumstances we always encourage you to contact your private physician who remains a resource for coordinating your care. When calling for follow-up care, please make the office aware that this follow-up is from your recent emergency room visit. If for any reason you are refused follow-up, please contact the [facility] Emergency Department at and asked to speak to the emergency department charge nurse. [facility] [address] [place] [id number] [id number] 1. Rest, ice, elevate the affected extremity. Please wear the sling as directed. 2. Tylenol and/or Ibuprofen as needed for pain management. [place] for moderate to severe pain, medication may cause drowsiness so do not take it while driving or needing to be functioning outside of the house. 3. Follow up with the Orthopedic provider as we discussed. Return to the ED as needed and as discussed. Sepsis Event Note - Evaluation Sepsis Screening Result: No Definite Risk - Focused Exam Vital Signs: Vital Signs Temp Pulse Resp BP Pulse Ox 09/26/19 17:10 94 16 110/62 97 09/26/19 16:16 101 H 20 97 09/26/19 15:42 97.2 F 111 H 16 132/63 98 Date Exam was Performed: 09/26/19 Time Exam was Performed: 17:40
== END 2019-09-26 17:10 | disposition home or self-care (01) ==
LOC: MW.ED 15:31 → EDBD 15:31 → MW.ED 17:10
DX: S43.422A Sprain of left rotator cuff capsule, initial encounter (principal); Y99.0 Civilian activity done for income or pay; F41.9 Anxiety disorder, unspecified; Z79.899 Other long term (current) drug therapy; F32.9 Major depressive disorder, single episode, unspecified; X50.9XXA Other and unspecified overexertion or strenuous movements or postures, initial encounter
CPT/HCPCS: 99283; A9270

== ENCOUNTER 2020-03-17 18:35 | Emergency (ER) | payer MEDICAID, OTHER ==
[2020-03-17] MEDS ORDERED: LORazepam 1 MG Tab PO ONE (19:49)
--- NOTE | 2020-03-17 19:49 | EDM.PDOC ---
ED HPI GENERAL MEDICAL PROBLEM - General Chief Complaint: General Stated Complaint: ANXIETY ISSUES Time Seen by Provider: 03/17/20 19:21 Source of Information: Reports: Patient History Limitations: Reports: No Limitations - History of Present Illness INITIAL COMMENTS - FREE TEXT/NARRATIVE: 34 yo F with history of anxiety presents with anxiety attack today. She ran out of her alprazolam 2 mg twice daily on the . She admits to chest tightness diffusely, shortness of breath, subjective fevers and chills and nausea. She denies vomiting or diarrhea. ROS: A 10-point review of systems, other than pertinent positives and negatives as stated per HPI, is otherwise negative Past medical history: No additional pertinent history Past Surgical history: No additional pertinent history Social history: No additional pertinent history Family history: No additional pertinent history PHYSICAL EXAM General: AOx4, GCS = 15, obese, anxious HEENT: dry mucous membrane Neck: supple, no meningismus, no Kernig or Brudzinski Cardiac: S1S2 RRR Respiratory: CTAB, no crackles or rales, no wheezing Abdomen: Soft, nontender, no rebound or guarding, nondistended, no pulsatile mass. Back: nontender Musculoskeletal: NVI distally, no deformity Neuro: No focal deficits, CN 2 - 12 WNL. 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: Psychiatric History: Reports: Anxiety, Depression Endocrine/Metabolic History: Reports: Diabetes, Type II - Past Surgical History HEENT Surgical History: Reports: Tonsillectomy GI Surgical History: Reports: Cholecystectomy Female Surgical History: Reports: Section, Tubal Ligation Social & Family History - Family History Family Medical History: Noncontributory - Tobacco Use Tobacco Use Status *Q: Current Every Day Tobacco User Years of Tobacco use: 10 Packs/Tins Daily: 0.5 - Recreational Drug Use Recreational Drug Use: No ED ROS GENERAL - Review of Systems Review Of Systems: Comprehensive ROS is negative, except as noted in HPI. (see dictation) ED EXAM, GENERAL - Physical Exam Exam: See Below (see dictation) #1 Interpretation EKG Interpretation Comments: Heart rate = 76 bpm, normal sinus rhythm, normal QRS interval, no STEMI. EKG and rhythm strip interpreted by me at 1929 Course - Vital Signs Last Recorded V/S: Last Vital Signs Temp 96.9 F 03/17/20 18:42 Pulse 84 03/17/20 18:42 Resp 20 03/17/20 18:42 BP 116/60 03/17/20 18:42 Pulse Ox 99 03/17/20 18:42 - Orders/Labs/Meds Orders: Active Orders 24 hr Category Date Time Status CORONAVIRUS COVID-19 PCR PHL Stat Lab 03/17/20 19:52 Received CORONAVIRUS COVID-19 RAPID [MOLEC] Stat Lab 03/17/20 19:57 Received Meds: Medications Discontinued Medications Generic Name Dose Route Start Last Admin Trade Name Freq PRN Reason Stop Dose Admin Lorazepam 2 mg 03/17/20 19:49 03/17/20 20:02 Ativan PO 03/17/20 19:50 2 mg ONETIME ONE Administration - Re-Assessments/Exams Free Text/Narrative Re-Assessment/Exam: 03/17/20 2030 After 2mg ativan PO in the ER, she improved and is currently stable for discharge. I performed a repeat exam and did not appreciate new abnormal findings. Patient exhibits normal vital signs and has a normal gait on road test. I advised the patient to return to the ER for reevaluation if symptoms worsened, including fever, worsening pain, or any other worrisome symptoms. I instructed the patient to follow up with PCP within 2-3 days for medication refill MEDICAL DECISION MAKING: I reviewed the patients past medical records, lab and radiographic findings. I discussed the case with the patient. My differential diagnosis included: Anxiety, ACS, Covid. Patient's chest x-ray was unremarkable, I do not suspect aortic dissection or pneumonia or pneumothorax. Patient's EKG was unremarkable, I do not suspect atypical chest pain. Patient's heart score <3, she is of low risk for MACE. Covid test was sent and pending. Departure - Departure Time of Disposition: 19:51 Disposition: Home, Self-Care 01 Condition: Good Clinical Impression: Anxiety - Discharge Information *PRESCRIPTION DRUG MONITORING PROGRAM REVIEWED*: Not Applicable *COPY OF PRESCRIPTION DRUG MONITORING REPORT IN PATIENT MONICA: Not Applicable Instructions: Managing Anxiety, Adult Referrals: Linda Navarro DO [Primary Care Provider] - 1 Day (for medication refill) Forms: ED Department Discharge Additional Instructions: The need for follow-up, as well as the timing and circumstances, are variable depending upon the specifics of your emergency department visit. If you don't have a primary care physician on staff, we will provide you with a referral. We always advise you to contact your personal physician following an emergency department visit to inform them of the circumstance of the visit and for follow-up with them and/or the need for any referrals to a consulting specialist. The emergency department will also refer you to a specialist when appropriate. This referral assures that you have the opportunity for follow-up care with a specialist. All of these measure are taken in an effort to provide you with optimal care, which includes your follow-up. Under all circumstances we always encourage you to contact your private physician who remains a resource for coordinating your care. When calling for follow-up care, please make the office aware that this follow-up is from your recent emergency room visit. If for any reason you are refused follow-up, please contact the [facility] Emergency Department at and asked to speak to the emergency department charge nurse. If you do not have a primary care doctor, please follow up with the clinics below within 3-5 days. [facility] [address] [place] [id number] [facility] [address] [place] [address] Sepsis Event Note (ED) - Evaluation Sepsis Screening Result: No Definite Risk - Focused Exam Vital Signs: Vital Signs Temp Pulse Resp BP Pulse Ox 03/17/20 18:42 96.9 F 84 20 116/60 99 - My Orders Last 24 Hours: My Active Orders 03/17/20 19:52 CORONAVIRUS COVID-19 PCR PHL Stat 03/17/20 19:57 CORONAVIRUS COVID-19 RAPID [MOLEC] Stat - Assessment/Plan Last 24 Hours: My Active Orders 03/17/20 19:52 CORONAVIRUS COVID-19 PCR PHL Stat 03/17/20 19:57 CORONAVIRUS COVID-19 RAPID [MOLEC] Stat
--- NOTE | 2020-03-17 20:20 | CR ---
INDICATION: Shortness of breath TECHNIQUE: Chest radiograph 1 view COMPARISON: None FINDINGS: Moderate degradation of image quality noted due to body habitus. Mediastinum: The mediastinum is normal in appearance. The heart silhouette is normal in size and morphology. Lung: Both lungs are unremarkable in appearance. No sign of pleural effusion seen. No pneumothorax is identified. Bone and Soft tissue: Unremarkable for age. IMPRESSION: 1. No acute cardiopulmonary disease is seen. Dictated by: Km Skaggs MD @ 03/17/2020 20:19:29 (Electronically Signed)
== END 2020-03-17 20:53 | disposition home or self-care (01) ==
LOC: MERGE 18:35 → MW.ED 18:35
DX: F41.9 Anxiety disorder, unspecified (principal); E11.9 Type 2 diabetes mellitus without complications; F17.210 Nicotine dependence, cigarettes, uncomplicated; Z79.84 Long term (current) use of oral hypoglycemic drugs; Z20.828 Contact with and (suspected) exposure to other viral communicable diseases; Z79.899 Other long term (current) drug therapy
CPT/HCPCS: 71045; 87635; 93005; 99285; A9270; 93010; 99282; U0002

== ENCOUNTER 2020-04-28 06:34 | Day surgery (SDC) | payer MEDICAID ==
[2020-04-25 11:26] LABS: BLOOD UREA NITROGEN,BUN 9 mg/dL (7.0-18.0); CARBON DIOXIDE,CO2 22.9 mmol/L (21.0-32.0); CHLORIDE,CL 103 mmol/L (98-107); GLUCOSE RANDOM 106 mg/dL (74-106); POTASSIUM,K 3.9 mmol/L (3.5-5.1); SODIUM,NA 138 mmol/L (136-145)
[~2020-04-28 06:34] MED LIST: Sodium Chloride 0.9% 10 ML SDV IV PRN; Sodium Chloride 0.9% 10 ML Syringe FLUSH PRN; Sodium Chloride 0.9% 2.5 ML Syringe FLUSH PRN; ceFAZolin 2 GM in Premix Bag 1 BAG IV ONE
[2020-04-28] MEDS ORDERED: Glycopyrrolate 0.2 MG/ML SDV ONE (07:01)
[2020-04-28] MEDS ORDERED: Midazolam 1 MG/ML 2 ML SDV ONE (07:01)
[2020-04-28] MEDS ORDERED: Lidocaine 2% 5 ML SDV ONE (07:01)
[2020-04-28] MEDS ORDERED: Ondansetron 4 MG/2 ML SDV ONE (07:01)
[2020-04-28] MEDS ORDERED: Propofol 200 MG/20 ML SDV ONE (07:01)
[2020-04-28] MEDS ORDERED: fentaNYL 250 MCG/5 ML SDV ONE (07:01)
[2020-04-28] MEDS: Lactated Ringers 1,000 ML IV SCH ×2 (07:15→16:25)
--- NOTE | 2020-04-28 07:22 | PCM.PREANE ---
Preanesthetic Assessment - Anesthesia/Transfusion/Family Hx Anesthesia History: Prior Anesthesia Without Reaction Family History of Anesthesia Reaction: No Transfusion History: No Prior Transfusion(s) - Review of Systems General: No Symptoms Pulmonary: No Symptoms Cardiovascular: No Symptoms Gastrointestinal: No Symptoms Neurological: No Symptoms Other: Reports: None - Physical Assessment NPO Status Date: 04/27/20 Height: 5 ft 3 in Weight: 103.873 kg ASA Class: 2 Mental Status: Alert & Oriented x3 Airway Class: Mallampati = 3 Dentition: Reports: Normal Dentition ROM/Head Extension: Full Lungs: Clear to Auscultation, Normal Respiratory Effort Cardiovascular: Regular Rate, Regular Rhythm - Lab Values: Laboratory Last Values WBC 15.32 K/uL (4.0-11.0) H 04/25/20 10:27 RBC 4.66 M/uL (4.30-5.90) 04/25/20 10:27 Hgb 14.8 g/dL (12.0-16.0) 04/25/20 10:27 Hct 44.0 % (36.0-46.0) 04/25/20 10:27 MCV 94.4 fL (80.0-98.0) 04/25/20 10:27 MCH 31.8 pg (27.0-32.0) 04/25/20 10:27 MCHC 33.6 g/dL (31.0-37.0) 04/25/20 10:27 RDW Std Deviation 47.9 fl (28.0-62.0) 04/25/20 10:27 RDW Coeff of Moses 14 % (11.0-15.0) 04/25/20 10:27 Plt Count 288 K/uL (150-400) 04/25/20 10:27 MPV 10.30 fL (7.40-12.00) 04/25/20 10:27 Nucleated RBC % 0.0 /100WBC 04/25/20 10:27 Nucleated RBCs # 0 K/uL 04/25/20 10:27 Sodium 138 mmol/L (136-145) 04/25/20 10:27 Potassium 3.9 mmol/L (3.5-5.1) 04/25/20 10:27 Chloride 103 mmol/L (98-107) 04/25/20 10:27 Carbon Dioxide 22.9 mmol/L (21.0-32.0) 04/25/20 10:27 BUN 9 mg/dL (7.0-18.0) 04/25/20 10:27 Creatinine 0.9 mg/dL (0.6-1.0) 04/25/20 10:27 Est Cr Clr Drug Dosing 72.86 mL/min 04/25/20 10:27 Estimated GFR (MDRD) > 60.0 ml/min 04/25/20 10:27 Glucose 106 mg/dL (74-106) 04/25/20 10:27 POC Glucose 128 mg/dL (60-110) H 04/28/20 07:08 Calcium 9.0 mg/dL (8.5-10.1) 04/25/20 10:27 HCG, Qual NEGATIVE (NEG) 04/25/20 10:27 Blood Type A NEGATIVE 04/25/20 10:27 Antibody Screen NEGATIVE 04/25/20 10:27 - Allergies Allergies/Adverse Reactions: Allergies Allergy/AdvReac Type Severity Reaction Status Date / Time No Known Allergies Allergy Verified 04/22/20 10:58 - Blood Blood Available: No - Anesthesia Plan Pre-Op Medication Ordered: None - Acknowledgements Anesthesia Type Planned: General Anesthesia Pt an Appropriate Candidate for the Planned Anesthesia: Yes Alternatives and Risks of Anesthesia Discussed w Pt/Guardian: Yes Pt/Guardian Understands and Agrees with Anesthesia Plan: Yes Additional Comments: PMH: MO, GERD, DM2- am [id number], PLAN: get PreAnesthesia Questionnaire HEENT History: Reports: Impaired Vision Other HEENT History: wears glasses Cardiovascular History: Reports: None Respiratory History: Reports: None Gastrointestinal History: Reports: Cholelithiasis Genitourinary History: Reports: None 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: Musculoskeletal History: Reports: Back Pain, Chronic, Fracture Other Musculoskeletal History: right arm Neurological History: Reports: None Psychiatric History: Reports: Anxiety, Depression Endocrine/Metabolic History: Reports: Diabetes, Type II, Obesity/BMI 30+ Hematologic History: Reports: None Immunologic History: Reports: None Oncologic (Cancer) History: Reports: None Dermatologic History: Reports: None - Infectious Disease History Infectious Disease History: Reports: None - Past Surgical History Female Surgical History: Reports: Section, Other (See Below), Tubal Ligation - SUBSTANCE USE Tobacco Use Status *Q: Former Tobacco User Tobacco Use Within Last Twelve Months: Cigarettes - HOME MEDS Home Medications: Home Meds ALPRAZolam 2 mg PO BID 10/30/18 [History] Escitalopram [Lexapro] 20 mg PO DAILY 10/30/18 [History] metFORMIN [Glucophage] 750 mg PO DAILY 03/17/20 [History] Butalb/Acetaminophen/Caffeine [Esgic Capsule] 1 tab PO DAILY 04/22/20 [History] Cholecalciferol (Vitamin D3) [Vitamin D3] 1 tab PO DAILY 04/22/20 [History] Famotidine 1 tab PO DAILY 04/22/20 [History] Ibuprofen 1 tab PO ASDIRECTED PRN 04/22/20 [History] Melatonin 1 tab PO BEDTIME PRN 04/22/20 [History] - CURRENT (IN HOUSE) MEDS Current Meds: Current Medications Lactated Ringer's (Ringers, Lactated) 1,000 mls @ 125 mls/hr IV ASDIRECTED HENRY Sodium Chloride (Saline Flush) 10 ml FLUSH ASDIRECTED PRN PRN Reason: Keep Vein Open Sodium Chloride (Saline Flush) 2.5 ml FLUSH ASDIRECTED PRN PRN Reason: Keep Vein Open Sodium Chloride (Normal Saline) 10 ml IV ASDIRECTED PRN PRN Reason: IV Use Discontinued Medications Fentanyl (Sublimaze) Confirm Administered Dose 250 mcg .ROUTE .STK-MED ONE Stop: 04/28/20 07:02 Glycopyrrolate (Robinul) Confirm Administered Dose 0.4 mg .ROUTE .STK-MED ONE Stop: 04/28/20 07:02 Cefazolin Sodium/Dextrose 2 gm (/ Premix) 50 mls @ 100 mls/hr IV ONETIME ONE Stop: 04/25/20 09:49 Lidocaine (Xylocaine-Mpf 2%) Confirm Administered Dose 5 ml .ROUTE .STK-MED ONE Stop: 04/28/20 07:02 Midazolam HCl (Versed 1 Mg/Ml) Confirm Administered Dose 2 mg .ROUTE .STK-MED ONE Stop: 04/28/20 07:02 Ondansetron HCl (Zofran) Confirm Administered Dose 4 mg .ROUTE .STK-MED ONE Stop: 04/28/20 07:02 Propofol (Diprivan 20 Ml) Confirm Administered Dose 200 mg .ROUTE .STK-MED ONE Stop: 04/28/20 07:02
[2020-04-28] MEDS ORDERED: Octyl 2-Cyanoacrylate 1 Tube ONE (07:25)
[2020-04-28] MEDS ORDERED: Fluorescein 5 ML Vial ONE (07:25)
[2020-04-28] MEDS ORDERED: Sodium Chloride 0.9% 20 ML ONE (08:08)
[2020-04-28] MEDS ORDERED: ceFAZolin 1 GM Vial ONE (08:08)
[2020-04-28] MEDS ORDERED: ePHEDrine 50 MG/ML SDV ONE (08:17)
[2020-04-28] MEDS ORDERED: HYDROmorphone 2 MG/ML Syringe ONE (08:29)
[2020-04-28] MEDS ORDERED: fentaNYL 100 MCG/2 ML SDV ONE ×2 (08:31→08:53)
[2020-04-28] MEDS ORDERED: Furosemide 40 MG/4 ML VIAL ONE (08:44)
[2020-04-28] MEDS ORDERED: Naloxone 0.4 MG/ML Syringe IVPUSH PRN (08:48)
[2020-04-28] MEDS ORDERED: Atropine 0.1 MG/ML 10 ML Syringe IVPUSH PRN ×2 (08:48)
[2020-04-28] MEDS ORDERED: fentaNYL 100 MCG/2 ML SDV IVPUSH PRN (08:48)
[2020-04-28] MEDS ORDERED: Albuterol 0.083% 2.5 MG/3 ML Neb Soln NEB PRN (08:48)
[2020-04-28] MEDS ORDERED: 50% Dextrose in Water 50 ML Syringe IVPUSH PRN (08:48)
[2020-04-28] MEDS ORDERED: EPINEPHrine 1:10,000 1 MG/10 ML Syringe IVPUSH PRN (08:48)
[2020-04-28] MEDS ORDERED: Sugammadex Sodium 200 MG/2 ML VIAL ONE (09:14)
[2020-04-28] MEDS ORDERED: Ketorolac 30 MG/ML SDV ONE (09:19)
[2020-04-28] MEDS ORDERED: Ketorolac 30 MG/ML SDV IVPUSH ONE (09:26)
[2020-04-28] MEDS ORDERED: Acetaminophen/oxyCODONE 325-5 MG Tab PO PRN (09:26)
[2020-04-28] MEDS ORDERED: Promethazine 25 MG/ML SDV IM PRN (09:26)
[2020-04-28] MEDS ORDERED: Ondansetron 4 MG/2 ML SDV IVPUSH PRN (09:26)
--- NOTE | 2020-04-28 09:30 | PCM.OPNOTE ---
- General Post-Op/Procedure Note Date of Surgery/Procedure: 04/28/20 Operative Procedure(s): TLH,Cysto. Pre Op Diagnosis: Bleeding Post-Op Diagnosis: Same Anesthesia Technique: General ET Tube Primary Surgeon: Peña Ortzi EBL in mLs: 100 Complications: None Condition: Good
--- NOTE | 2020-04-28 10:26 | PCM.POSTAN ---
POST ANESTHESIA ASSESSMENT - MENTAL STATUS Mental Status: Alert, Oriented - VITAL SIGNS Vital Signs: Last Vital Signs Temp 98.2 F 04/28/20 09:28 Pulse 89 04/28/20 10:13 Resp 9 L 04/28/20 10:13 BP 112/56 L 04/28/20 10:13 Pulse Ox 96 04/28/20 10:13 - RESPIRATORY Respiratory Status: Respiratory Rate WNL, Airway Patent, O2 Saturation Stable - CARDIOVASCULAR CV Status: Pulse Rate WNL, Blood Pressure Stable - GASTROINTESTINAL GI Status: No Symptoms - POST OP HYDRATION Hydration Status: Adequate & Stable
--- NOTE | 2020-04-28 12:57 | OR ---
SURGEON: Peña Ortiz MD DATE OF PROCEDURE: 04/28/2020 PREOPERATIVE DIAGNOSIS: Menometrorrhagia, dysmenorrhea. POSTOPERATIVE DIAGNOSIS: Menometrorrhagia, dysmenorrhea. OPERATIONS PERFORMED: 1. Total laparoscopic hysterectomy. 2. Laparoscopic bilateral salpingectomy and preserving both ovaries. 3. Cystoscopy. 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 ANESTHESIA: General endotracheal intubation, Haider Jones and Dr. Amaya. ESTIMATED BLOOD LOSS: 100 mL. COMPLICATIONS: None. FINDING: Uterus is about 8 to 10 week size. INDICATION FOR SURGERY: The patient has long-standing menometrorrhagia and dysmenorrhea. She is status post tubal ligation. She has failed medical therapy. She is status post section x2. PROCEDURE IN DETAIL: The patient was brought to the OR, properly identified, and after adequate level of anesthesia, the patient was placed in lithotomy position, prepped and draped and then access to the abdomen and the vagina. Then, time-out was taken and the patient re-identified. A Pagan catheter was placed in the bladder and manipulator placed in the uterus for manipulation. The operation shifted abdominally. Stab wound done beneath the umbilicus. The Veress needle was placed in the peritoneal cavity and the cavity insufflated with 4 L of carbon dioxide, and then utilizing the Visiport technique, the abdomen was entered with a central 5 mm trocar without any problem. The patient was placed in Trendelenburg and 10/12 trocar was placed in the left iliac fossa and 5 mm trocar in the right iliac fossa. The operation started by identifying the major organ and the landmark of anatomy. Then, the next step, the superior pedicle was coagulated and transected with Con Harmonic scalpel. The tubes were included with the specimen and the ovary on both sides preserved and then the round ligament was done in the same manner and then the anterior leaf of the broad ligament dissected downward medially pushing the bladder completely away from the operative field. Once it was done, then uterine vessel coagulated and transected at the level of the manipulator on both sides. Then, the vagina was entered in a circular manner starting on the left side using the Con Harmonic scalpel, and in a circular manner, the cervix and the uterus detached from the vagina. The uterus, tubes, and cervix were removed vaginally and then pneumoperitoneum re-established by placing vaginal pack in the vagina. Thorough irrigation of the pelvis showed no oozing and no bleeding and then we proceeded to close the vaginal cuff laparoscopically using 2-0 PDS interrupted sutures. While we were doing that, we asked Anesthesia to give the patient fluorescein, and then after closing the vagina, the abdomen was deflated. Pagan catheter was removed. Cystoscopy was performed. The bladder was intact. Both ureteric orifices were seen with the dye coming from both of them and thus patency of both ureters verified, and once this was done, the cystoscope was removed and the bladder was emptied and the procedure ended. The laparoscopic incision was closed with 2-0 Vicryl in layer. Instrument and sponge counts were correct. The patient tolerated the procedure well and went to recovery room in stable general condition. SALVADOR / LAINE /[id number]
[2020-04-28] MEDS: Acetaminophen/oxyCODONE 325-5 MG Tab PO PRN ×3 (13:00→22:10)
[2020-04-28] MEDS ORDERED: Ketorolac 30 MG/ML SDV IVPUSH PRN (15:30)
[2020-04-28] MEDS: Morphine 4 MG/ML Syringe IVPUSH PRN (19:14)
[2020-04-29] MEDS: Lactated Ringers 1,000 ML IV SCH (00:55)
[2020-04-29] MEDS: Morphine 4 MG/ML Syringe IVPUSH PRN (02:11)
[2020-04-29 05:57] LABS: BLOOD UREA NITROGEN,BUN 8 mg/dL (7.0-18.0); CARBON DIOXIDE,CO2 24.8 mmol/L (21.0-32.0); CHLORIDE,CL 108 mmol/L (98-107); GLUCOSE RANDOM 84 mg/dL (74-106); POTASSIUM,K 3.7 mmol/L (3.5-5.1); SODIUM,NA 138 mmol/L (136-145)
--- NOTE | 2020-04-29 08:36 | PCM.SURGPN ---
- General Info Date of Service: 04/29/20 POD#: 1 Functional Status: Reports: Pain Controlled - Review of Systems General: Reports: No Symptoms HEENT: Reports: No Symptoms Pulmonary: Reports: No Symptoms Cardiovascular: Reports: No Symptoms Gastrointestinal: Reports: No Symptoms Genitourinary: Reports: No Symptoms Musculoskeletal: Reports: No Symptoms Skin: Reports: No Symptoms Neurological: Reports: No Symptoms Psychiatric: Reports: No Symptoms - Patient Data Vitals - Most Recent: Last Vital Signs Temp 36.2 C 04/29/20 04:34 Pulse 72 04/29/20 04:34 Resp 18 04/29/20 04:34 BP 96/50 L 04/29/20 04:34 Pulse Ox 95 04/29/20 04:34 Weight - Most Recent: 103.873 kg I&O - Last 24 Hours: Intake & Output 04/28/20 04/29/20 04/29/20 22:59 06:59 14:59 Intake Total 1700 2736 Output Total 300 1075 Balance 1400 1661 Lab Results Last 24 Hrs: Laboratory Results - last 24 hr 04/29/20 04/29/20 Range/Units 04:45 04:45 WBC 9.21 (4.0-11.0) K/uL RBC 3.53 L (4.30-5.90) M/uL Hgb 11.0 L (12.0-16.0) g/dL Hct 34.5 L (36.0-46.0) % MCV 97.7 (80.0-98.0) fL MCH 31.2 (27.0-32.0) pg MCHC 31.9 (31.0-37.0) g/dL RDW Std Deviation 49.8 (28.0-62.0) fl RDW Coeff of Moses 14 (11.0-15.0) % Plt Count 194 (150-400) K/uL MPV 10.70 (7.40-12.00) fL Neut % (Auto) 60.8 (48.0-80.0) % Lymph % (Auto) 27.5 (16.0-40.0) % Sebastian % (Auto) 9.7 (0.0-15.0) % Eos % (Auto) 1.7 (0.0-7.0) % Baso % (Auto) 0.3 (0.0-1.5) % Neut # (Auto) 5.6 (1.4-5.7) K/uL Lymph # (Auto) 2.5 H (0.6-2.4) K/uL Sebastian # (Auto) 0.9 H (0.0-0.8) K/uL Eos # (Auto) 0.2 (0.0-0.7) K/uL Baso # (Auto) 0.0 (0.0-0.1) K/uL Nucleated RBC % 0.0 /100WBC Nucleated RBCs # 0 K/uL Sodium 138 (136-145) mmol/L Potassium 3.7 (3.5-5.1) mmol/L Chloride 108 H (98-107) mmol/L Carbon Dioxide 24.8 (21.0-32.0) mmol/L BUN 8 (7.0-18.0) mg/dL Creatinine 0.7 (0.6-1.0) mg/dL Est Cr Clr Drug Dosing 93.68 mL/min Estimated GFR (MDRD) > 60.0 ml/min Glucose 84 (74-106) mg/dL Calcium 7.8 L (8.5-10.1) mg/dL Med Orders - Current: Current Medications Lactated Ringer's (Ringers, Lactated) 1,000 mls @ 125 mls/hr IV ASDIRECTED [facility] Last Admin: 04/29/20 00:55 Dose: 125 mls/hr Documented by: Ketorolac Tromethamine (Toradol) 30 mg IVPUSH Q6H PRN PRN Reason: Pain (severe 7-10) Stop: 05/03/20 15:31 Last Admin: 04/28/20 16:00 Dose: 30 mg Documented by: Morphine Sulfate (Morphine) 4 mg IVPUSH Q2H PRN PRN Reason: Pain (severe 7-10) Last Admin: 04/29/20 02:11 Dose: 4 mg Documented by: Ondansetron HCl (Zofran) 4 mg IVPUSH Q6H PRN PRN Reason: Nausea/Vomiting Oxycodone/Acetaminophen (Percocet 325-5 Mg) 1 tab PO Q4H PRN PRN Reason: Pain (moderate 4-6) Oxycodone/Acetaminophen (Percocet 325-5 Mg) 2 tab PO Q4H PRN PRN Reason: Pain (moderate 4-6) Last Admin: 04/28/20 22:10 Dose: 2 tab Documented by: Promethazine HCl (Phenergan) 25 mg IM Q6H PRN PRN Reason: Nausea/Vomiting Last Admin: 04/28/20 09:59 Dose: 25 mg Documented by: Sodium Chloride (Saline Flush) 10 ml FLUSH ASDIRECTED PRN PRN Reason: Keep Vein Open Sodium Chloride (Saline Flush) 2.5 ml FLUSH ASDIRECTED PRN PRN Reason: Keep Vein Open Sodium Chloride (Normal Saline) 10 ml IV ASDIRECTED PRN PRN Reason: IV Use Discontinued Medications Albuterol (Proventil Neb Soln) 2.5 mg NEB ONETIME PRN PRN Reason: Wheezing Atropine Sulfate (Atropine 0.1 Mg/Ml) 0.5 mg IVPUSH ASDIRECTED PRN PRN Reason: Hypo-perfusion Atropine Sulfate (Atropine 0.1 Mg/Ml) 1 mg IVPUSH ASDIRECTED PRN PRN Reason: Hypo-Perfusion Cefazolin Sodium (Ancef) Confirm Administered Dose 2 gm .ROUTE .STK-MED ONE Stop: 04/28/20 08:09 Dextrose/Water (Dextrose 50% In Water) 50 ml IVPUSH ASDIRECTED PRN PRN Reason: Hypoglycemia Ephedrine Sulfate (Ephedrine Sulfate) Confirm Administered Dose 50 mg .ROUTE .STK-MED ONE Stop: 04/28/20 08:18 Epinephrine HCl (Epinephrine 1:10,000) 1 mg IVPUSH ASDIRECTED PRN PRN Reason: ACLS Guidelines Fentanyl (Sublimaze) Confirm Administered Dose 250 mcg .ROUTE .STK-MED ONE Stop: 04/28/20 07:02 Fentanyl (Sublimaze) Confirm Administered Dose 100 mcg .ROUTE .STK-MED ONE Stop: 04/28/20 08:32 Fentanyl (Sublimaze) 50 - 100 mcg IVPUSH Q5M PRN PRN Reason: Pain Fentanyl (Sublimaze) Confirm Administered Dose 100 mcg .ROUTE .STK-MED ONE Stop: 04/28/20 08:54 Fluorescein Sodium (Ak-Fluor) Confirm Administered Dose 5 ml .ROUTE .STK-MED ONE Stop: 04/28/20 07:26 Furosemide (Lasix) Confirm Administered Dose 40 mg .ROUTE .STK-MED ONE Stop: 04/28/20 08:45 Glycopyrrolate (Robinul) Confirm Administered Dose 0.4 mg .ROUTE .STK-MED ONE Stop: 04/28/20 07:02 Hydromorphone HCl (Dilaudid) Confirm Administered Dose 2 mg .ROUTE .STK-MED ONE Stop: 04/28/20 08:30 Cefazolin Sodium/Dextrose 2 gm (/ Premix) 50 mls @ 100 mls/hr IV ONETIME ONE Stop: 04/25/20 09:49 Sodium Chloride (Normal Saline) Confirm Administered Dose 20 mls @ as directed .ROUTE .STK-MED ONE Stop: 04/28/20 08:09 Ketorolac Tromethamine (Toradol) Confirm Administered Dose 30 mg .ROUTE .STK-MED ONE Stop: 04/28/20 09:20 Ketorolac Tromethamine (Toradol) 30 mg IVPUSH ONETIME ONE Stop: 04/28/20 09:27 Last Admin: 04/28/20 09:52 Dose: Not Given Documented by: Lidocaine (Xylocaine-Mpf 2%) Confirm Administered Dose 5 ml .ROUTE .STK-MED ONE Stop: 04/28/20 07:02 Midazolam HCl (Versed 1 Mg/Ml) Confirm Administered Dose 2 mg .ROUTE .STK-MED ONE Stop: 04/28/20 07:02 Naloxone HCl (Narcan) 0.1 mg IVPUSH ASDIRECTED PRN PRN Reason: Respiratory Depression Octyl Cyanoacrylate (Dermabond Advance) Confirm Administered Dose 1 applic .ROUTE .STK-MED ONE Stop: 04/28/20 07:26 Ondansetron HCl (Zofran) Confirm Administered Dose 4 mg .ROUTE .STK-MED ONE Stop: 04/28/20 07:02 Propofol (Diprivan 20 Ml) Confirm Administered Dose 200 mg .ROUTE .STK-MED ONE Stop: 04/28/20 07:02 Sugammadex Sodium (Bridion) Confirm Administered Dose 200 mg .ROUTE .STK-MED ONE Stop: 04/28/20 09:15 - Exam Wound/Incisions: Healing Well General: Alert, Oriented HEENT: Pupils Equal Neck: Supple Lungs: Clear to Auscultation, Normal Respiratory Effort Cardiovascular: Regular Rate, Regular Rhythm GI/Abdominal Exam: Normal Bowel Sounds, Soft, Non-Tender, No Organomegaly, No Distention, No Abnormal Bruit, No Mass, Pelvis Stable Extremities: Normal Inspection, Normal Range of Motion, Non-Tender, No Pedal Edema, Normal Capillary Refill Skin: Warm, Dry, Intact Neurological: No New Focal Deficit Psy/Mental Status: Alert, Normal Affect, Normal Mood Sepsis Event Note - Evaluation Sepsis Screening Result: No Definite Risk - Focused Exam Vital Signs: Vital Signs Temp Pulse Resp BP Pulse Ox 04/29/20 04:34 36.2 C 72 18 96/50 L 95 - Problem List Review Problem List Initiated/Reviewed/Updated: Yes - My Orders Last 24 Hours: Active Orders 24 hr Category Date Time Status Patient Status [ADT] Routine ADT 04/28/20 09:26 Active Notify Provider Vital Signs [RC] ASDIRECTED Care 04/28/20 09:26 Active Oxygen Therapy [RC] ASDIRECTED Care 04/28/20 09:26 Active RT Incentive Spirometry [RC] Q2HWA Care 04/28/20 09:26 Active Up With Assistance [RC] PER UNIT ROUTINE Care 04/28/20 09:26 Active Up ad Jennie [RC] PER UNIT ROUTINE Care 04/28/20 09:26 Active Vital Signs [RC] PER UNIT ROUTINE Care 04/28/20 09:26 Active Regular Diet [DIET] Diet 04/28/20 Lunch Active Acetaminophen/oxyCODONE [Percocet 325-5 MG] Med 04/28/20 09:26 Active 1 tab PO Q4H PRN Acetaminophen/oxyCODONE [Percocet 325-5 MG] Med 04/28/20 09:26 Active 2 tab PO Q4H PRN Ketorolac [Toradol] Med 04/28/20 15:30 Active 30 mg IVPUSH Q6H PRN Morphine Med 04/28/20 09:26 Active 4 mg IVPUSH Q2H PRN Ondansetron [Zofran] Med 04/28/20 09:26 Active 4 mg IVPUSH Q6H PRN Promethazine [Phenergan] Med 04/28/20 09:26 Active 25 mg IM Q6H PRN Peripheral IV Discontinue [OM.PC] Routine Oth 04/28/20 09:26 Ordered Sequential Compression Device [OM.PC] Per Unit Routine Oth 04/28/20 09:26 Ordered Resuscitation Status Routine Resus Stat 04/28/20 09:26 Ordered Medication Orders Lactated Ringer's (Ringers, Lactated) 1,000 mls @ 125 mls/hr IV ASDIRECTED [facility] Last Admin: 04/29/20 00:55 Dose: 125 mls/hr Documented by: Infusion: 04/29/20 00:25 Dose: 125 mls/hr Documented by: Admin: 04/28/20 16:25 Dose: 125 mls/hr Documented by: Infusion: 04/28/20 15:15 Dose: 125 mls/hr Documented by: Admin: 04/28/20 07:15 Dose: 125 mls/hr Documented by: CONSTANTINE Ketorolac Tromethamine (Toradol) 30 mg IVPUSH Q6H PRN PRN Reason: Pain (severe 7-10) Stop: 05/03/20 15:31 Last Admin: 04/28/20 16:00 Dose: 30 mg Documented by: MARY Morphine Sulfate (Morphine) 4 mg IVPUSH Q2H PRN PRN Reason: Pain (severe 7-10) Last Admin: 04/29/20 02:11 Dose: 4 mg Documented by: Admin: 04/28/20 19:14 Dose: 4 mg Documented by: MARY Ondansetron HCl (Zofran) 4 mg IVPUSH Q6H PRN PRN Reason: Nausea/Vomiting Oxycodone/Acetaminophen (Percocet 325-5 Mg) 1 tab PO Q4H PRN PRN Reason: Pain (moderate 4-6) Oxycodone/Acetaminophen (Percocet 325-5 Mg) 2 tab PO Q4H PRN PRN Reason: Pain (moderate 4-6) Last Admin: 04/28/20 22:10 Dose: 2 tab Documented by: Admin: 04/28/20 17:37 Dose: 2 tab Documented by: Admin: 04/28/20 13:00 Dose: 2 tab Documented by: MARY Promethazine HCl (Phenergan) 25 mg IM Q6H PRN PRN Reason: Nausea/Vomiting Last Admin: 04/28/20 09:59 Dose: 25 mg Documented by: PRAMOD Sodium Chloride (Saline Flush) 10 ml FLUSH ASDIRECTED PRN PRN Reason: Keep Vein Open Sodium Chloride (Saline Flush) 2.5 ml FLUSH ASDIRECTED PRN PRN Reason: Keep Vein Open Sodium Chloride (Normal Saline) 10 ml IV ASDIRECTED PRN PRN Reason: IV Use - Assessment Assessment (Free Text/Narrative):: Status post total laparoscopic hysterectomy postoperative day #1 patient doing well ambulatory on regular diet no vaginal bleeding her vital signs stable she is voiding without any problem and she is passing gas - Plan Plan (Free Text/Narrative):: Patient will be discharged home today the post hysterectomy instruction she was given prescription for Narco 5/325 for postoperative pain. The patient is to come to the office 1 week of her discharge for late postoperative examination
== END 2020-04-29 09:53 | disposition home or self-care (01) ==
LOC: MW.SDS 06:34 → MW.MS 11:03 → MW.SDS 04-29 09:53
PROVIDERS: ATTEND Obstetrics & Gynecology
DX: N92.1 Excessive and frequent menstruation with irregular cycle (principal); N94.6 Dysmenorrhea, unspecified; F17.210 Nicotine dependence, cigarettes, uncomplicated; F41.9 Anxiety disorder, unspecified; F32.9 Major depressive disorder, single episode, unspecified; E11.9 Type 2 diabetes mellitus without complications; E66.9 Obesity, unspecified; K21.9 Gastro-esophageal reflux disease without esophagitis; Z79.84 Long term (current) use of oral hypoglycemic drugs; Z98.890 Other specified postprocedural states; Z79.899 Other long term (current) drug therapy; Z68.41 Body mass index [BMI] 40.0-44.9, adult
CPT/HCPCS: 36415; 58571; 80048; 82962; 84703; 85025; 85027; 86850; 86900; 86901; A9270; J0690; J1170; J1885; J1940; J2001; J2250; J2270; J2550; J2704; J3010; J3490; J7120; 88307; J2405

== ENCOUNTER 2020-09-22 11:43 | Day surgery (SDC) | payer MEDICAID ==
[2020-09-22] MEDS ORDERED: Lidocaine 2% 5 ML SDV INJECT ONE (13:00)
[2020-09-22] MEDS ORDERED: Ropivacaine 0.5% 5 MG/ML 30 ML SDV INJECT ONE (13:00)
[2020-09-22] MEDS ORDERED: Betamethasone Acetate/Betamethasone Sod Phosphate 30 MG/5 ML MDV EPIDUR ONE (13:00)
[2020-09-22] MEDS ORDERED: Diazepam 5 MG Tab PO ONE (13:00)
[2020-09-22] MEDS ORDERED: Iopamidol 200-M 10 ML vial ITHECAL ONE (13:00)
--- NOTE | 2020-09-22 20:13 | OR ---
SURGEON: Lyndsey Buchanan D.O. DATE OF PROCEDURE: 09/22/2020 PRIMARY SURGEON: Lyndsey Buchanan D.O. DAIRY AND FOOD LABORATORY ASSISTANT: OR staff present: 1. Marion Najera RN. 2. Shady Worthy RN. 3. Marion Rosado RT. WOUND CLASS: I. PREOPERATIVE DIAGNOSES: 1. Lumbar L5-S1 herniated disk. 2. Lumbosacral right lower extremity radiculopathy. 3. Chronic low back pain. POSTOPERATIVE DIAGNOSES: 1. Lumbar L5-S1 herniated disk. 2. Lumbosacral right lower extremity radiculopathy. 3. Chronic low back pain. PROCEDURES PERFORMED: 1. Right S1 transforaminal epidural steroid injection. 2. Fluoroscopic guidance for needle placement. 3. Local with oral Valium for sedation. SCREENING QUESTIONS: The patient answered "no" to all of the following questions: 1. Are you allergic to iodine, Betadine or latex? 2. Do you have a bleeding disorder? 3. Do you have any joint replacements, heart valve replacements, or a pacemaker? 4. Are you allergic to anti-inflammatories or blood thinners? 5. Do you have any current local or systemic infections? DESCRIPTION OF PROCEDURE: The patient had the procedure thoroughly explained including risks, benefits and alternatives. Consent was signed in my clinic indicating understanding and willingness to proceed. The patient presented to [facility] where the patient was escorted to the dressing room to disrobe and change into a hospital gown. Preoperative vital signs were taken and stable. The patient reported that Valium was taken prior to the procedure. The patient was brought to the procedure room and placed in the prone position on the table. A pillow was placed under the abdomen in order to flatten the lumbar lordosis. The back was prepped with ChloraPrep and sterilely draped. All personnel in the operating room were dressed in appropriate attire including surgical scrubs, head and shoe covers. This was to ensure sterility while in the treatment room. During the time fluoroscopy was in use, all personnel in the operating room wore lead carbajal with thyroid collars. Sterile technique was used during the procedure. The fluoroscope was placed for the right S1 transforaminal epidural steroid injection. There was no sign of infection at the skin site for needle insertion. The skin was anesthetized with 2% lidocaine with a 27 gauge 1-1/2 inch needle. Then a 22 gauge 3-1/2 inch spinal needle, advanced to the right S1 foramen. Under direct fluoroscopic guidance needle position was verified in three views; AP, oblique and lateral, with 0.2 cubic centimeters increments of Isovue- 200 dye. No intravascular flow pattern was observed under live fluoroscopy. Then 12 milligrams of Celestone and local was slowly injected after negative aspiration of heme, cerebrospinal fluid and no paresthesias were noted. The needle was cleared prior to removal from the skin. No adverse reactions were noted. The patient was brought to the recovery room awake and in good condition by my staff. The patient was monitored and discharge instructions were given after a brief stay in the recovery area. Both oral and written discharge and follow up instructions were given. The patient will follow up in the clinic in 3-4 weeks post procedure to evaluate the efficacy. The patient verbalized understanding including understanding of those signs and symptoms that would require emergency care and knows how to contact the office if there are any problems or questions in the meantime. PREOPERATIVE PAIN: 8/10. POSTOPERATIVE PAIN: 4/10. PLAN: Follow up in the pain clinic in 3 weeks. HOGLEYDI / LAINE /[id number] MTDMilton
== END 2020-09-22 14:19 ==
LOC: MW.SDS 11:43
PROVIDERS: ATTEND Anesthesiology
DX: G89.29 Other chronic pain (principal); M51.17 Intervertebral disc disorders with radiculopathy, lumbosacral region; M51.16 Intervertebral disc disorders with radiculopathy, lumbar region; E11.9 Type 2 diabetes mellitus without complications; M51.34 Other intervertebral disc degeneration, thoracic region; M51.35 Other intervertebral disc degeneration, thoracolumbar region; M79.18 Myalgia, other site; E66.9 Obesity, unspecified; Z68.42 Body mass index [BMI] 45.0-49.9, adult; F17.210 Nicotine dependence, cigarettes, uncomplicated; Z88.8 Allergy status to other drugs, medicaments and biological substances; Z79.84 Long term (current) use of oral hypoglycemic drugs; Z79.899 Other long term (current) drug therapy
CPT/HCPCS: 64483; A9270; J0702; J2795; Q9966

== ENCOUNTER 2020-09-24 12:48 | Emergency (ER) | payer MEDICAID ==
[2020-09-24] MEDS ORDERED: Sodium Chloride 0.9% 2.5 ML Syringe FLUSH PRN (13:55)
[2020-09-24] MEDS ORDERED: Sodium Chloride 0.9% 10 ML Syringe FLUSH PRN (13:55)
[2020-09-24] MEDS ORDERED: Ondansetron 4 MG/2 ML SDV IVPUSH ONE (13:58)
[2020-09-24] MEDS ORDERED: HYDROmorphone 2 MG/ML Syringe IVPUSH ONE (13:58)
[2020-09-24] MEDS ORDERED: Iopamidol 755 MG/ML 500 ML Multipack Bottle IVPUSH ONE (15:21)
[2020-09-24 15:28] LABS: BLOOD UREA NITROGEN,BUN 15 mg/dL (7.0-18.0); CHLORIDE,CL 104 mmol/L (98-107); GLUCOSE RANDOM 106 mg/dL (74-106); POTASSIUM,K 3.9 mmol/L (3.5-5.1); SODIUM,NA 140 mmol/L (136-145)
--- NOTE | 2020-09-24 16:09 | CT ---
Clinical INDICATION: Epidural injection with increased pain, chills. Assess for abscess. TECHNIQUE: Axial intravenously infused CT cuts were performed from T10 to the coccyx. The images were formatted in the sagittal, axial and coronal planes. 100 mL of Isovue-370 was injected intravenously via the right antecubital vein. Findings : Image detail is not optimal due to the patient`s size. At T10-11, there is some calcification of the ligamentum flavum bilaterally most prominent on the left, that is mildly encroaching upon the thecal sac. There is no foraminal stenosis. At T11-12, there are there is no disc herniation, central spinal stenosis or foraminal stenosis. At T12-L1, there is no disc herniation, central spinal stenosis or foraminal stenosis. At L1-2, there is no disc herniation, central spinal stenosis or foraminal stenosis. At L2-3, there is a broad shallow disc bulge with some thickening of ligamentum flavum superimposed upon a congenitally small spinal canal. The combined effect is causing mild central canal stenosis. The neural foramina are adequately patent. At L3-4, there is some thickening of ligamentum flavum superimposed upon a congenitally small spinal canal. The combined effect is causing moderate central canal stenosis. The neural foramina appear adequately patent. At L4-5, there is a broad disc bulge with thickening of ligamentum flavum with congenital small spinal canal. The combined effect is causing moderate to severe central canal stenosis. The neural foramina appear adequately patent. At L5-S1, there is a broad disc bulge. There is no central canal or foraminal stenosis. There is no apparent epidural abscess. There has been a cholecystectomy and hysterectomy. Impression : 1. At T10-11, there is some calcification of the ligamentum flavum bilaterally most prominent on the left, that is mildly encroaching upon the thecal sac. 2. At L2-3, there is mild central canal stenosis. 3. At L3-4, there is moderate central canal stenosis. 4. At L4-5, there is moderate to severe central canal stenosis. 5. Image quality is not optimal due to the patient`s size. CT is not the ideal test to assess for an epidural abscess. MRI is considered the optimal test of choice. When allowing for these limitations, there is no apparent epidural abscess. Please note that all CT scans at this facility use dose modulation, iterative reconstruction, and/or weight-based dosing when appropriate to reduce radiation dose to as low as reasonably achievable. Dictated by Solis Gonzalez MD @ 09/24/2020 4:07:[address] Solis Gonzalez @ Sep 24 2020 4:07PM
--- NOTE | 2020-09-24 16:17 | EDM.PDOC ---
ED HPI GENERAL MEDICAL PROBLEM - General Chief Complaint: Back Pain or Injury Stated Complaint: BACK PAIN Time Seen by Provider: 09/24/20 12:54 Source of Information: Reports: Patient History Limitations: Reports: No Limitations - History of Present Illness INITIAL COMMENTS - FREE TEXT/NARRATIVE: HISTORY AND PHYSICAL: History of present illness: Patient is a 35-year-old female who presents emergency room today with concern of acute exacerbation of chronic low back pain. Patient states that back in April she had a fall and states that she "broke some vertebrae "in her back but states that she has been doing physical therapy and following with the pain specialist, Dr. Penny for her back ever since the injury. Patient states that she has had an exacerbation of her low back pain over the past several weeks so Dr. Penny has been scheduling some steroid injections. Patient states 3 to 4 days ago she had a steroid injection of her S1 and states that starting last night and today she has had worse pain than when she prior had the steroid injection. Patient denies any numbness, tingling, or weakness but states that her back pain is "worse than before she got the steroid injection ". Patient denies any other associative symptoms. Patient denies any loss or retention of bowel bladder function or saddle anesthesia. Patient denies fever, chills, chest pain, shortness of breath, or cough. Denies headache, neck stiff ness, change in vision, syncope, or near syncope. Denies nausea, vomiting, abdominal pain, diarrhea, constipation, or dysuria. Has not noted any blood in urine or stool. Patient has been eating and drinking appropriately. Review of systems: As per history of present illness and below otherwise all systems reviewed and negative. Past medical history: As per history of present illness and as reviewed below otherwise noncontributory. Surgical history: As per history of present illness and as reviewed below otherwise noncontributo ry. Social history: See social history for further information Family history: As per history of present illness and as reviewed below otherwise noncontributory. Physical exam: General: Patient is alert, oriented, and in no acute distress. Patient sitting comfortably on exam table. Vitals stable and reviewed by me. HEENT: Atraumatic, normocephalic, pupils equal and reactive bilaterally, nega tive for conjunctival pallor or scleral icterus, mucous membranes moist, TMs normal bilaterally, throat clear, neck supple, nontender, trachea midline. No drooling or trismus noted. No meningeal signs. No hot potato voice noted. Lungs: Clear to auscultation, breath sounds equal bilaterally, chest nontender. Heart: S1S2, regular rate and rhythm without overt murmur Abdomen: Soft, nondistended, nontender. Negative for masses or hepatosplenomegaly. Negative for costovertebral tenderness. Pelvis: Stable nontender. Genitourinary: Deferred. Rectal: Deferred. Skin: Intact, warm, dry. No lesions or rashes noted. Extremities: No obvious deformity to complete spine. No step-offs, or crepitus to palpation of the complete spine. There is a small pinpoint injection jt where I assume patient has had the steroid injection just to the right of her lower lumbar spine without erythema / drainage / ecchymosis of this area. Generalized pain to palpation of the lumbar spine. Patient does have full range of motion of the complete spine but does have pain with range of motion of the lumbar spine. Straight leg raise intact bilaterally. Heel/toe gait intact. Patellar reflexes intact bilaterally. Otherwise, atraumatic, negative for cords or calf pain. Neurovascular unremarkable. Neuro: Awake, alert, oriented. Cranial nerves II through XII unremarkable. Cerebellum unremarkable. Motor and sensory unremarkable throughout. Exam nonfocal. Notes: Dr. Talamantes verbally involved in patient care. Arrival to the ED, patient is vitally stable and well-appearing. Patient does have pain to palpation of her generalized lumbar spine and states that she does have a history of chronic low back pain. She does not have any deficits on exam and was able to ambulate today in the ED. However, patient states that this pain is more severe following an epidural steroid injection. Although MRI is the imaging of choice to r/o epidural abscess, my clinical suspicion is not high given normal exam, acescence of fever, and vitally stable. Unable to obtain an MRI at our facility. However, given low clinical suspicion, Will obtain routine lab work, ESR, CRP as well as lumbar CT with contrast. In the evidence of elevated ESR/CRP or concern on lumbar CT, will transfer to obtain MRI. C today does show a leukocytosis at 17.15, however, patient has been given steroids and likely steroid elevation. Lactate is normal. Mild derangements of CMP unremarkable. Urinalysis is clear. hCG negative. ESR and CRP are normal. Lumbar CT shows at T10-T11 there are some calcifications of the ligamentum flavum bilaterally most prominent on the left, that is mildly encroaching upon the thecal sac. At L2-3 there is mild central canal stenosis. At L3-L4 there is moderate central canal stenosis. At L4-L5 there is moderate to severe central canal stenosis. Upon reevaluation of patient, she is more comfortable given therapeutics today in the ED. Strict return precautions thoroughly discussed with patient inc luding but not limited to lower extremity weakness/sensation changes/bowel/bladder incontinence, fevers, worsening pain madelyn with patient and expresses understanding. Discussed the importance for follow-up with her primary care provider. Voices understanding and is agreeable to plan of care. Denies any further questions or concerns at this time. Diagnostics: CBC, CMP, ESR, CRP. UA, Uhcg, Lumbar spine ct w cont Therapeutics: Dilaudid Prescription: None Impression: Acute on Chronic low back pain Plan: 1. The medication you received today does cause drowsiness, so do not drive for the remaining day. 2. When resting please lay on a flat firm surface. Limit your mobility to prevent muscle stiffness. Get up to ambulate/move around/gentle stretching multiple times throughout the day. May alternate heat and ice to painful areas. 3. Tylenol as needed for back pain. Otherwise, take the prescribed tramadol as directed. Tramadol, this medication may cause drowsiness, so do not take it while driving or needing to be functioning outside of the home. 4. Follow-up with your primary care provider as discussed. Return to the ED as needed and as discussed. Definitive disposition and diagnosis as appropriate pending reevaluation and review of above. Back Pain Score (Numeric/FACES): 10 - Related Data Allergies Allergy/AdvReac Type Severity Reaction Status Date / Time celecoxib Allergy Itching Verified 09/24/20 13:28 Home Meds: Home Meds ALPRAZolam 2 mg PO BID 10/30/18 [History] Escitalopram [Lexapro] 20 mg PO DAILY 10/30/18 [History] metFORMIN [Glucophage] 750 mg PO DAILY 03/17/20 [History] Famotidine 1 tab PO DAILY 04/22/20 [History] Calcium Carb/Magnesium Oxid/D3 [Calcium Magnesium + D] 1 cap PO DAILY 09/24/20 [History] Ergocalciferol (Vitamin D2) [Vitamin D2] 50,000 unit PO 09/24/20 [History] Ferrous Sulfate 1 tab PO DAILY 09/24/20 [History] Gabapentin [Neurontin] 300 mg PO TID 09/24/20 [History] methocarbamoL [Methocarbamol] 750 mg PO TID PRN 09/24/20 [History] traMADol [Ultram] 50 mg PO Q6H PRN #15 tab 09/24/20 [Rx] Past Medical History HEENT History: Reports: Impaired Vision Other HEENT History: wears glasses Cardiovascular History: Reports: None Respiratory History: Reports: None Gastrointestinal History: Reports: Cholelithiasis, GERD Genitourinary History: Reports: None [employer] History: Reports: Musculoskeletal History: Reports: Back Pain, Chronic, Fracture Other Musculoskeletal History: right arm Neurological History: Reports: None Psychiatric History: Reports: Anxiety, Depression Endocrine/Metabolic History: Reports: Diabetes, Type II, Obesity/BMI 30+ Hematologic History: Reports: Anemia Immunologic History: Reports: None Oncologic (Cancer) History: Reports: None Dermatologic History: Reports: None - Infectious Disease History Infectious Disease History: Reports: None - Past Surgical History Head Surgeries/Procedures: Reports: None HEENT Surgical History: Reports: Tonsillectomy Cardiovascular Surgical History: Reports: None Respiratory Surgical History: Reports: None GI Surgical History: Reports: Cholecystectomy Female Surgical History: Reports: Section, Other (See Below), Tubal Ligation Other Female Surgeries/Procedures: states had laparoscopy for removal of ovarian cysts Endocrine Surgical History: Reports: None Neurological Surgical History: Reports: None Musculoskeletal Surgical History: Reports: None Oncologic Surgical History: Reports: None Dermatological Surgical History: Reports: None Social & Family History - Family History Family Medical History: No Pertinent Family History - Tobacco Use Tobacco Use Status *Q: Former Tobacco User Used Tobacco, but Quit: Yes Month/Year Tobacco Last Used: 08/2020 - Caffeine Use Caffeine Use: Reports: Coffee, Energy Drinks - Recreational Drug Use Recreational Drug Use: No ED ROS GENERAL - Review of Systems Review Of Systems: Comprehensive ROS is negative, except as noted in HPI. ED EXAM, GENERAL - Physical Exam Exam: See Below (see dictation) Course - Vital Signs Last Recorded V/S: Last Vital Signs Temp 96.8 F L 09/24/20 13:21 Pulse 93 09/24/20 13:21 Resp BP 124/69 09/24/20 13:21 Pulse Ox 96 09/24/20 13:21 - Orders/Labs/Meds Orders: Active Orders 24 hr Category Date Time Status Sodium Chloride 0.9% [Saline Flush] Med 09/24/20 13:55 Active 10 ml FLUSH ASDIRECTED PRN Sodium Chloride 0.9% [Saline Flush] Med 09/24/20 13:55 Active 2.5 ml FLUSH ASDIRECTED PRN Saline Lock Insert [OM.PC] Stat Oth 09/24/20 13:55 Ordered Medication Orders Sodium Chloride (Sodium Chloride 0.9% 10 Ml Syringe) 10 ml FLUSH ASDIRECTED PRN PRN Reason: Keep Vein Open Last Admin: 09/24/20 14:37 Dose: 10 ml Documented by: DOLLY Sodium Chloride (Sodium Chloride 0.9% 2.5 Ml Syringe) 2.5 ml FLUSH ASDIRECTED PRN PRN Reason: Keep Vein Open Last Admin: 09/24/20 14:37 Dose: 2.5 ml Documented by: DOLLY Labs: Laboratory Tests 09/24/20 09/24/20 09/24/20 Range/Units 13:40 13:40 14:43 WBC 17.15 H (4.0-11.0) K/uL RBC 4.05 L (4.30-5.90) M/uL Hgb 13.0 (12.0-16.0) g/dL Hct 38.8 (36.0-46.0) % MCV 95.8 (80.0-98.0) fL MCH 32.1 H (27.0-32.0) pg MCHC 33.5 (31.0-37.0) g/dL RDW Std Deviation 48.5 (28.0-62.0) fl RDW Coeff of Moses 14 (11.0-15.0) % Plt Count 283 (150-400) K/uL MPV 10.70 (7.40-12.00) fL Neut % (Auto) 66.4 (48.0-80.0) % Lymph % (Auto) 23.6 (16.0-40.0) % [place] % (Auto) 9.4 (0.0-15.0) % Eos % (Auto) 0.3 (0.0-7.0) % Baso % (Auto) 0.3 (0.0-1.5) % Neut # (Auto) 11.4 H (1.4-5.7) K/uL Lymph # (Auto) 4.1 H (0.6-2.4) K/uL [place] # (Auto) 1.6 H (0.0-0.8) K/uL Eos # (Auto) 0.1 (0.0-0.7) K/uL Baso # (Auto) 0.1 (0.0-0.1) K/uL Nucleated RBC % 0.0 /100WBC Nucleated RBCs # 0 K/uL ESR (0-19) mm/hr Lactate (0.20-2.00) mmol/L Sodium (136-145) mmol/L Potassium (3.5-5.1) mmol/L Chloride (98-107) mmol/L Carbon Dioxide (21.0-32.0) mmol/L BUN (7.0-18.0) mg/dL Creatinine (0.6-1.0) mg/dL Est Cr Clr Drug Dosing mL/min Estimated GFR (MDRD) ml/min Glucose (74-106) mg/dL Calcium (8.5-10.1) mg/dL Total Bilirubin (0.2-1.0) mg/dL AST (15-37) IU/L ALT (14-63) IU/L Alkaline Phosphatase (46-116) U/L C-Reactive Protein (0.00-0.90) mg/dL Total Protein (6.4-8.2) g/dL Albumin (3.4-5.0) g/dL Globulin (2.6-4.0) g/dL Albumin/Globulin Ratio (0.9-1.6) Urine Color YELLOW Urine Appearance CLEAR Urine pH 5.5 (5.0-8.0) Ur Specific [place] >= 1.030 (1.001-1.035) Urine Protein NEGATIVE (NEGATIVE) mg/dL Urine Glucose (UA) NEGATIVE (NEGATIVE) mg/dL Urine Ketones NEGATIVE (NEGATIVE) mg/dL Urine Occult Blood NEGATIVE (NEGATIVE) Urine Nitrite NEGATIVE (NEGATIVE) Urine Bilirubin NEGATIVE (NEGATIVE) Urine Urobilinogen 0.2 (<2.0) EU/dL Ur Leukocyte Esterase NEGATIVE (NEGATIVE) Urine HCG, Qual NEGATIVE (NEGATIVE) 09/24/20 09/24/20 09/24/20 Range/Units 14:43 14:43 15:20 WBC (4.0-11.0) K/uL RBC (4.30-5.90) M/uL Hgb (12.0-16.0) g/dL Hct (36.0-46.0) % MCV (80.0-98.0) fL MCH (27.0-32.0) pg MCHC (31.0-37.0) g/dL RDW Std Deviation (28.0-62.0) fl RDW Coeff of Moses (11.0-15.0) % Plt Count (150-400) K/uL MPV (7.40-12.00) fL Neut % (Auto) (48.0-80.0) % Lymph % (Auto) (16.0-40.0) % [place] % (Auto) (0.0-15.0) % Eos % (Auto) (0.0-7.0) % Baso % (Auto) (0.0-1.5) % Neut # (Auto) (1.4-5.7) K/uL Lymph # (Auto) (0.6-2.4) K/uL [place] # (Auto) (0.0-0.8) K/uL Eos # (Auto) (0.0-0.7) K/uL Baso # (Auto) (0.0-0.1) K/uL Nucleated RBC % /100WBC Nucleated RBCs # K/uL ESR 5 (0-19) mm/hr Lactate 1.6 (0.20-2.00) mmol/L Sodium 140 (136-145) mmol/L Potassium 3.9 (3.5-5.1) mmol/L Chloride 104 (98-107) mmol/L Carbon Dioxide 22.0 (21.0-32.0) mmol/L BUN 15 (7.0-18.0) mg/dL Creatinine 1.1 H (0.6-1.0) mg/dL Est Cr Clr Drug Dosing 59.05 mL/min Estimated GFR (MDRD) 56.5 ml/min Glucose 106 (74-106) mg/dL Calcium 8.4 L (8.5-10.1) mg/dL Total Bilirubin 0.2 (0.2-1.0) mg/dL AST 25 (15-37) IU/L ALT 63 (14-63) IU/L Alkaline Phosphatase 70 (46-116) U/L C-Reactive Protein <0.20 (0.00-0.90) mg/dL Total Protein 7.2 (6.4-8.2) g/dL Albumin 3.3 L (3.4-5.0) g/dL Globulin 3.9 (2.6-4.0) g/dL Albumin/Globulin Ratio 0.9 (0.9-1.6) Urine Color Urine Appearance Urine pH (5.0-8.0) Ur Specific [place] (1.001-1.035) Urine Protein (NEGATIVE) mg/dL Urine Glucose (UA) (NEGATIVE) mg/dL Urine Ketones (NEGATIVE) mg/dL Urine Occult Blood (NEGATIVE) Urine Nitrite (NEGATIVE) Urine Bilirubin (NEGATIVE) Urine Urobilinogen (<2.0) EU/dL Ur Leukocyte Esterase (NEGATIVE) Urine HCG, Qual (NEGATIVE) Meds: Medications Generic Name Dose Route Start Last Admin Trade Name Freq PRN Reason Stop Dose Admin Sodium Chloride 10 ml 09/24/20 13:55 09/24/20 14:37 Sodium Chloride 0.9% 10 Ml Syringe FLUSH 10 ml ASDIRECTED PRN Administration Keep Vein Open Sodium Chloride 2.5 ml 09/24/20 13:55 09/24/20 14:37 Sodium Chloride 0.9% 2.5 Ml Syringe FLUSH 2.5 ml ASDIRECTED PRN Administration Keep Vein Open Discontinued Medications Generic Name Dose Route Start Last Admin Trade Name Freq PRN Reason Stop Dose Admin Hydromorphone HCl 0.5 mg 09/24/20 13:58 09/24/20 14:33 Hydromorphone 2 Mg/Ml Syringe IVPUSH 09/24/20 13:59 0.5 mg ONETIME ONE Administration Iopamidol 100 ml 09/24/20 15:21 09/24/20 15:22 Iopamidol 755 Mg/Ml 500 Ml Multipack Bottle IVPUSH 09/24/20 15:22 100 ml ONETIME ONE Administration Ondansetron HCl 4 mg 09/24/20 13:58 09/24/20 14:26 Ondansetron 4 Mg/2 Ml Sdv IVPUSH 09/24/20 13:59 4 mg ONETIME ONE Administration Departure - Departure Time of Disposition: 16:17 Disposition: Home, Self-Care 01 Clinical Impression: Acute exacerbation of chronic low back pain - Discharge Information Prescriptions: traMADol [Ultram] 50 mg PO Q6H PRN #15 tab PRN Reason: Pain (Severe 7-10) Referrals: Betina Valle NP [Primary Care Provider] - Forms: ED Department Discharge Additional Instructions: The following information is given to patients seen in the emergency department who are being discharged to home. This information is to outline your options for follow-up care. We provide all patients seen in our emergency department with a follow-up referral. The need for follow-up, as well as the timing and circumstances, are variable depending upon the specifics of your emergency department visit. If you don't have a primary care physician on staff, we will provide you with a referral. We always advise you to contact your personal physician following an emergency department visit to inform them of the circumstance of the visit and for follow-up with them and/or the need for any referrals to a consulting specialist. The emergency department will also refer you to a specialist when appropriate. This referral assures that you have the opportunity for follow-up care with a specialist. All of these measure are taken in an effort to provide you with optimal care, which includes your follow-up. Under all circumstances we always encourage you to contact your private physician who remains a resource for coordinating your care. When calling for follow-up care, please make the office aware that this follow-up is from your recent emergency room visit. If for any reason you are refused follow-up, please contact the [facility] Emergency Department at and asked to speak to the emergency department charge nurse. [facility] [address] [place] [id number] [id number] 1. The medication you received today does cause drowsiness, so do not drive for the remaining day. 2. When resting please lay on a flat firm surface. Limit your mobility to prevent muscle stiffness. Get up to ambulate/move around/gentle stretching multiple times throughout the day. May alternate heat and ice to painful areas. 3. Tylenol as needed for back pain. Otherwise, take the prescribed tramadol as directed. Tramadol, this medication may cause drowsiness, so do not take it while driving or needing to be functioning outside of the home. 4. Follow-up with your primary care provider as discussed. Return to the ED as needed and as discussed. Sepsis Event Note (ED) - Evaluation Sepsis Screening Result: No Definite Risk - Focused Exam Vital Signs: Vital Signs Temp Pulse BP Pulse Ox 09/24/20 13:21 96.8 F L 93 124/69 96 - My Orders Last 24 Hours: My Active Orders 09/24/20 13:55 Sodium Chloride 0.9% [Saline Flush] 10 ml FLUSH ASDIRECTED PRN Sodium Chloride 0.9% [Saline Flush] 2.5 ml FLUSH ASDIRECTED PRN Saline Lock Insert [OM.PC] Stat - Assessment/Plan Last 24 Hours: My Active Orders 09/24/20 13:55 Sodium Chloride 0.9% [Saline Flush] 10 ml FLUSH ASDIRECTED PRN Sodium Chloride 0.9% [Saline Flush] 2.5 ml FLUSH ASDIRECTED PRN Saline Lock Insert [OM.PC] Stat
== END 2020-09-24 16:47 | disposition home or self-care (01) ==
LOC: MW.ED 12:48
DX: M54.5 Low back pain (principal); G89.29 Other chronic pain; K21.9 Gastro-esophageal reflux disease without esophagitis; E11.9 Type 2 diabetes mellitus without complications; E66.9 Obesity, unspecified; Z68.39 Body mass index [BMI] 39.0-39.9, adult; Z88.1 Allergy status to other antibiotic agents; Z87.891 Personal history of nicotine dependence; Z79.84 Long term (current) use of oral hypoglycemic drugs; Z79.899 Other long term (current) drug therapy
CPT/HCPCS: 36415; 72132; 80053; 81003; 81025; 83605; 85025; 85652; 86140; 96374; 96375; 99284; J1170; J2405; Q9967; 99283

== ENCOUNTER 2020-09-30 11:48 | Emergency (ER) | payer MEDICAID ==
[2020-09-30] MEDS ORDERED: Acetaminophen/HYDROcodone 325-5 MG Tab PO ONE (12:19)
--- NOTE | 2020-09-30 12:40 | EDM.PDOC ---
ED HPI GENERAL MEDICAL PROBLEM - General Chief Complaint: Back Pain or Injury Stated Complaint: PAIN IN BACK Time Seen by Provider: 09/30/20 11:50 Source of Information: Reports: Patient History Limitations: Reports: No Limitations - History of Present Illness INITIAL COMMENTS - FREE TEXT/NARRATIVE: HISTORY AND PHYSICAL: History of present illness: Patient is a 35-year-old female who presents to the ED today with concern of acute on chronic low back pain that has been ongoing for the past several weeks. Patient has been following with Dr. Penny in the clinic since a prior back injury in April. Patient states that she was also doing physical therapy. Patient states that she had a S1 steroid injection of the epidural space approximately 2 weeks ago. I did seen and evaluated the patient in the ED on 09/24/2020 for acute exacerbation of chronic low back pain. Patient states that since her last ED visit, she has had worsening back pain and was following up with Dr. Penny today who told her she needed to come to the emergency room due to her symptoms. Patient states that since her last ED visit, she feels as if her right leg is "weaker "and the pain is more significant but denies any loss or retention of bowel bladder function or saddle anesthesia. Patient denies any fevers or headaches. Patient states that she has still been able to walk but has pain with doing so. Patient states she is allergic to NSAIDs and gets hives so has been taking Tylenol with mild relief of symptoms. No h/o IV drug use. No h/o cancer / metastatic disease. Patient denies fever, chills, chest pain, shortness of breath, or cough. Denies headache, neck stiff ness, change in vision, syncope, or near syncope. Denies nausea, vomiting, abdominal pain, diarrhea, constipation, or dysuria. Has not noted any blood in urine or stool. Patient has been eating and drinking appropriately. Review of systems: As per history of present illness and below otherwise all systems reviewed and negative. Past medical history: As per history of present illness and as reviewed below otherwise noncontributory. Surgical history: As per history of present illness and as reviewed below otherwise noncontributory. Social history: See social history for further information Family history: As per history of present illness and as reviewed below otherwise noncontributory. Physical exam: General: Patient is alert, oriented, and in no acute distress. Patient sitting comfortably on exam table. Patient was able to ambulate into the ED today. Vitals stable and reviewed by me. HEENT: Atraumatic, normocephalic, pupils equal and reactive bilaterally, negative for conjunctival pallor or scleral icterus, mucous membranes moist, TMs normal bilaterally, throat clear, neck supple, nontender, trachea midline. No drooling or trismus noted. No meningeal signs. No hot potato voice noted. Lungs: Clear to auscultation, breath sounds equal bilaterally, chest nontender. Heart: S1S2, regular rate and rhythm without overt murmur Abdomen: Soft, nondistended, nontender. Negative for masses or hepatosplenomegaly. Negative for costovertebral tenderness. Pelvis: Stable nontender. Genitourinary: Deferred. Rectal: Deferred. Skin: Intact, warm, dry. No lesions or rashes noted. Extremities: No obvious deformity of the complete spine. No step-offs, crepitus to palpation of the complete spine. Patient does have generalized pain to palpation of the lower lumbar spine. Patient does have full range of motion of the complete spine but does have pain with range of motion of her lumbar spine. Patient does have pain to palpation of bilateral paraspinous muscles of the lumbar spine. Straight leg is intact bilaterally. Heel/toe gait intact. Patellar reflexes intact bilaterally. Intact sensation to light and deep touch of bilateral lower extremities. Patient has intact strength and equal bilateral lower extremities. Otherwise, atraumatic, negative for cords or calf pain. Neurovascular unremarkable. Neuro: Awake, alert, oriented. Cranial nerves II through XII unremarkable. Cerebellum unremarkable. Motor and sensory unremarkable throughout. Exam nonfocal. Notes: Dr. Zak Velasquez verbally involved in patient care; including patient disposition. I have personally seen and evaluated the patient on 09/24/2020, and at that time, patient had presented to the ED with acute exacerbation of chronic low back pain acutely worsening following a epidural steroid injection 3 to 4 days prior. At that time, patient received a thorough evaluation including routine lab work including ESR and CRP, and a lumbar spine CT with contrast. Patient did have leukocytosis of 17.15 at that visit, however had been given a recent steroid injection with a normal lactate and afebrile. Her lab work was otherwise unremarkable with unremarkable ESR and CRP. At that time the lumbar CT did show chronic changes of the spine including T10-T11 some calcifications of the ligamentum flavum bilaterally, most prominent on the left that mildly encroaching upon the thecal sac. At L2-L3 some mild central canal stenosis. At L3-L4 moderate central canal stenosis. L4-L5 moderate to severe central canal stenosis. Patient was discharged in stable condition given low suspicion for epidural abscess with instruction to follow-up with her primary care provider with strict return precautions. Patient presents to the ED today secondary to worsening low back pain and now progression of stated weakness of her right lower extremity. On exam, patient has intact 5/5 strength of bilateral lower extremities that is equal with no appreciable deficit or weakness of the right lower extremity. Patient was able to ambulate in the ED today and does have pain to palpation of her lower lumbar spine which was unchanged from prior exam and grossly unremarkable. Neurovascularly intact. Will repeat labwork today. Lab work shows an improvement in leukocytosis of 12.25 from prior 17.15. CRP is mildly elevated at 2.2 which is nonspecific. ESR remains within normal limits. Urinalysis is negative for signs of infection with a negative hCG. Upon reevaluation of patient, she remains vitally stable and comfortable throughout stay in ED. She does have improvement of her symptoms given therapeutics today in the emergency room. Patient requires an MRI of the thoracic/lumbar spine to further assess her symptoms, however, given low suspicion on clinical exam for spinal cord compression / cauda equina syndrome and lack of symptoms of cord compression/cauda equina syndrome, patient is stable and this can be performed outpatient. Our facility is able to get patient into the MRI at the soonest available time is Saturday10/04/20 at 3pm. Patient has an established relationship with a primary care provider, Betina Feliciano in the clinic. Patient scheduled for outpatient MRI on 10/04/20 at 3pm with results sent to her PCP, Betina Feliciano. Strict return precautions thoroughly discussed with patient including but not limited to lower extremity weakness/deficit in sensation changes, bowel bladder incontinence, fevers, worsening pain and expresses understanding. Discussed importance for obtaining this MRI on 10/04/2020 at 3 PM and close follow-up with her primary care provider for follow-up. Voices understanding and is agreeable to plan of care. Denies any further questions or concerns at this time. Diagnostics: CBC, CMP, UA, Uhcg, ESR, CRP (Outpatient MRI of lumbar/thoracic w and w/o cont scheduled for 10/04/20 at 3pm with results to patients PCP, Betina Feliciano) Therapeutics: Rajat Prescription: Lidocaine patch, Tramadol (#15) Impression: Acute on chronic low back pain Plan: 1. You have an MRI of your thoracic and lumbar spine scheduled for 10/04/20 at 3pm. This scan will take approximately 2 hours to complete. The results will be sent to your primary care provider, Betina Feliciano. 2. The medication you received today does cause drowsiness, so do not drive for the remaining day. 3. When resting please lay on a flat firm surface. Limit your mobility to prevent muscle stiffness. Get up to ambulate/move around/gentle stretching multiple times throughout the day. May alternate heat and ice to painful areas. 4. Tylenol as needed for back pain. Otherwise, take the prescribed tramadol as directed. Tramadol, this medication may cause drowsiness, so do not take it while driving or needing to be functioning outside of the home. 5. Follow-up with your primary care provider as discussed. Return to the ED as needed and as discussed. Definitive disposition and diagnosis as appropriate pending reevaluation and review of above. - Related Data Allergies Allergy/AdvReac Type Severity Reaction Status Date / Time celecoxib Allergy Itching Verified 09/30/20 11:57 NSAIDS (Non-Steroidal Allergy Rash Verified 09/30/20 11:58 Anti-Inflamma Home Meds: Home Meds ALPRAZolam 2 mg PO BID 10/30/18 [History] Escitalopram [Lexapro] 20 mg PO DAILY 10/30/18 [History] metFORMIN [Glucophage] 750 mg PO DAILY 03/17/20 [History] Famotidine 1 tab PO DAILY 04/22/20 [History] Calcium Carb/Magnesium Oxid/D3 [Calcium Magnesium + D] 1 cap PO DAILY 09/24/20 [History] Ergocalciferol (Vitamin D2) [Vitamin D2] 50,000 unit PO 09/24/20 [History] Ferrous Sulfate 1 tab PO DAILY 09/24/20 [History] Gabapentin [Neurontin] 300 mg PO TID 09/24/20 [History] methocarbamoL [Methocarbamol] 750 mg PO TID PRN 09/24/20 [History] Lidocaine 5% [Lidoderm 5%] 1 patch TOP DAILY PRN 4 Days #4 patch 09/30/20 [Rx] traMADol [Ultram] 50 mg PO Q6H PRN #15 tab 09/30/20 [Rx] Past Medical History HEENT History: Reports: Impaired Vision Other HEENT History: wears glasses Cardiovascular History: Reports: None Respiratory History: Reports: None Gastrointestinal History: Reports: Cholelithiasis, GERD Genitourinary History: Reports: None [employer] History: Reports: Musculoskeletal History: Reports: Back Pain, Chronic, Fracture Other Musculoskeletal History: right arm Neurological History: Reports: None Psychiatric History: Reports: Anxiety, Depression Endocrine/Metabolic History: Reports: Diabetes, Type II, Obesity/BMI 30+ Hematologic History: Reports: Anemia Immunologic History: Reports: None Oncologic (Cancer) History: Reports: None Dermatologic History: Reports: None - Infectious Disease History Infectious Disease History: Reports: None - Past Surgical History Head Surgeries/Procedures: Reports: None HEENT Surgical History: Reports: Tonsillectomy Cardiovascular Surgical History: Reports: None Respiratory Surgical History: Reports: None GI Surgical History: Reports: Cholecystectomy Female Surgical History: Reports: Section, Other (See Below), Tubal Ligation Other Female Surgeries/Procedures: states had laparoscopy for removal of ovarian cysts Endocrine Surgical History: Reports: None Neurological Surgical History: Reports: None Musculoskeletal Surgical History: Reports: None Oncologic Surgical History: Reports: None Dermatological Surgical History: Reports: None Social & Family History - Family History Family Medical History: No Pertinent Family History - Tobacco Use Tobacco Use Status *Q: Current Every Day Tobacco User Years of Tobacco use: 10 Packs/Tins Daily: 0.5 - Caffeine Use Caffeine Use: Reports: Coffee, Energy Drinks, Soda, Tea - Recreational Drug Use Recreational Drug Use: No ED ROS GENERAL - Review of Systems Review Of Systems: Comprehensive ROS is negative, except as noted in HPI. ED EXAM, GENERAL - Physical Exam Exam: See Below (see dictation) Course - Vital Signs Last Recorded V/S: Last Vital Signs Temp 97.3 F 09/30/20 12:00 Pulse 99 09/30/20 12:00 Resp 20 09/30/20 12:00 BP 109/70 09/30/20 12:00 Pulse Ox 98 09/30/20 12:00 - Orders/Labs/Meds Labs: Laboratory Tests 09/30/20 09/30/20 09/30/20 Range/Units 12:22 12:22 12:30 WBC 12.25 H (4.0-11.0) K/uL RBC 4.48 (4.30-5.90) M/uL Hgb 14.3 (12.0-16.0) g/dL Hct 44.1 (36.0-46.0) % MCV 98.4 H (80.0-98.0) fL MCH 31.9 (27.0-32.0) pg MCHC 32.4 (31.0-37.0) g/dL RDW Std Deviation 51.1 (28.0-62.0) fl RDW Coeff of Moses 14 (11.0-15.0) % Plt Count 303 (150-400) K/uL MPV 10.20 (7.40-12.00) fL Neut % (Auto) 61.9 (48.0-80.0) % Lymph % (Auto) 23.3 (16.0-40.0) % [facility] % (Auto) 12.0 (0.0-15.0) % Eos % (Auto) 2.4 (0.0-7.0) % Baso % (Auto) 0.4 (0.0-1.5) % Neut # (Auto) 7.6 H (1.4-5.7) K/uL Lymph # (Auto) 2.9 H (0.6-2.4) K/uL [facility] # (Auto) 1.5 H (0.0-0.8) K/uL Eos # (Auto) 0.3 (0.0-0.7) K/uL Baso # (Auto) 0.1 (0.0-0.1) K/uL Nucleated RBC % 0.0 /100WBC Nucleated RBCs # 0 K/uL ESR (0-19) mm/hr Sodium (136-145) mmol/L Potassium (3.5-5.1) mmol/L Chloride (98-107) mmol/L Carbon Dioxide (21.0-32.0) mmol/L BUN (7.0-18.0) mg/dL Creatinine (0.6-1.0) mg/dL Est Cr Clr Drug Dosing mL/min Estimated GFR (MDRD) ml/min Glucose (74-106) mg/dL Calcium (8.5-10.1) mg/dL Total Bilirubin (0.2-1.0) mg/dL AST (15-37) IU/L ALT (14-63) IU/L Alkaline Phosphatase (46-116) U/L C-Reactive Protein (0.00-0.90) mg/dL Total Protein (6.4-8.2) g/dL Albumin (3.4-5.0) g/dL Globulin (2.6-4.0) g/dL Albumin/Globulin Ratio (0.9-1.6) Urine Color YELLOW Urine Appearance SLT CLOUDY Urine pH 6.0 (5.0-8.0) Ur Specific [place] 1.020 (1.001-1.035) Urine Protein NEGATIVE (NEGATIVE) mg/dL Urine Glucose (UA) NEGATIVE (NEGATIVE) mg/dL Urine Ketones NEGATIVE (NEGATIVE) mg/dL Urine Occult Blood NEGATIVE (NEGATIVE) Urine Nitrite NEGATIVE (NEGATIVE) Urine Bilirubin NEGATIVE (NEGATIVE) Urine Urobilinogen 0.2 (<2.0) EU/dL Ur Leukocyte Esterase NEGATIVE (NEGATIVE) Urine HCG, Qual NEGATIVE (NEGATIVE) 09/30/20 09/30/20 Range/Units 12:30 12:30 WBC (4.0-11.0) K/uL RBC (4.30-5.90) M/uL Hgb (12.0-16.0) g/dL Hct (36.0-46.0) % MCV (80.0-98.0) fL MCH (27.0-32.0) pg MCHC (31.0-37.0) g/dL RDW Std Deviation (28.0-62.0) fl RDW Coeff of Moses (11.0-15.0) % Plt Count (150-400) K/uL MPV (7.40-12.00) fL Neut % (Auto) (48.0-80.0) % Lymph % (Auto) (16.0-40.0) % [facility] % (Auto) (0.0-15.0) % Eos % (Auto) (0.0-7.0) % Baso % (Auto) (0.0-1.5) % Neut # (Auto) (1.4-5.7) K/uL Lymph # (Auto) (0.6-2.4) K/uL [facility] # (Auto) (0.0-0.8) K/uL Eos # (Auto) (0.0-0.7) K/uL Baso # (Auto) (0.0-0.1) K/uL Nucleated RBC % /100WBC Nucleated RBCs # K/uL ESR 18 (0-19) mm/hr Sodium 138 (136-145) mmol/L Potassium 4.1 (3.5-5.1) mmol/L Chloride 103 (98-107) mmol/L Carbon Dioxide 25.6 (21.0-32.0) mmol/L BUN 10 (7.0-18.0) mg/dL Creatinine 0.9 (0.6-1.0) mg/dL Est Cr Clr Drug Dosing 69.00 mL/min Estimated GFR (MDRD) > 60.0 ml/min Glucose 106 (74-106) mg/dL Calcium 8.7 (8.5-10.1) mg/dL Total Bilirubin 0.2 (0.2-1.0) mg/dL AST 25 (15-37) IU/L ALT 50 (14-63) IU/L Alkaline Phosphatase 90 (46-116) U/L C-Reactive Protein 2.20 H (0.00-0.90) mg/dL Total Protein 8.0 (6.4-8.2) g/dL Albumin 3.5 (3.4-5.0) g/dL Globulin 4.5 H (2.6-4.0) g/dL Albumin/Globulin Ratio 0.8 L (0.9-1.6) Urine Color Urine Appearance Urine pH (5.0-8.0) Ur Specific [place] (1.001-1.035) Urine Protein (NEGATIVE) mg/dL Urine Glucose (UA) (NEGATIVE) mg/dL Urine Ketones (NEGATIVE) mg/dL Urine Occult Blood (NEGATIVE) Urine Nitrite (NEGATIVE) Urine Bilirubin (NEGATIVE) Urine Urobilinogen (<2.0) EU/dL Ur Leukocyte Esterase (NEGATIVE) Urine HCG, Qual (NEGATIVE) Meds: Medications Discontinued Medications Generic Name Dose Route Start Last Admin Trade Name Freq PRN Reason Stop Dose Admin Hydrocodone Bitart/Acetaminophen 1 tab 05/07/21 12:19 09/30/20 12:28 Acetaminophen/Hydrocodone 325-5 Mg Tab PO 09/30/20 12:20 1 tab ONETIME ONE Administration Departure - Departure Time of Disposition: 13:43 Disposition: Home, Self-Care 01 Clinical Impression: Acute exacerbation of chronic low back pain - Discharge Information Prescriptions: Lidocaine 5% [Lidoderm 5%] 1 patch TOP DAILY PRN 4 Days #4 patch PRN Reason: Pain traMADol [Ultram] 50 mg PO Q6H PRN #15 tab PRN Reason: Pain (Severe 7-10) Instructions: Chronic Back Pain, [id number] Referrals: Betina Valle NP [Primary Care Provider] - Forms: ED Department Discharge Additional Instructions: The following information is given to patients seen in the emergency department who are being discharged to home. This information is to outline your options for follow-up care. We provide all patients seen in our emergency department with a follow-up referral. The need for follow-up, as well as the timing and circumstances, are variable depending upon the specifics of your emergency department visit. If you don't have a primary care physician on staff, we will provide you with a referral. We always advise you to contact your personal physician following an emergency department visit to inform them of the circumstance of the visit and for follow-up with them and/or the need for any referrals to a consulting specialist. The emergency department will also refer you to a specialist when appropriate. This referral assures that you have the opportunity for follow-up care with a specialist. All of these measure are taken in an effort to provide you with optimal care, which includes your follow-up. Under all circumstances we always encourage you to contact your private physician who remains a resource for coordinating your care. When calling for follow-up care, please make the office aware that this follow-up is from your recent emergency room visit. If for any reason you are refused follow-up, please contact the [facility] Emergency Department at and asked to speak to the emergency department charge nurse. [facility] [address] [place] [id number] [facility] [address] [place] [address] 1. You have an MRI of your thoracic and lumbar spine scheduled for 10/04/20 at 3pm. This scan will take approximately 2 hours to complete. The results will be sent to your primary care provider, Betina Feliciano. 2. The medication you received today does cause drowsiness, so do not drive for the remaining day. 3. When resting please lay on a flat firm surface. Limit your mobility to prevent muscle stiffness. Get up to ambulate/move around/gentle stretching multiple times throughout the day. May alternate heat and ice to painful areas. 4. Tylenol as needed for back pain. Otherwise, take the prescribed tramadol as directed. Tramadol, this medication may cause drowsiness, so do not take it while driving or needing to be functioning outside of the home. 5. Follow-up with your primary care provider as discussed. Return to the ED as needed and as discussed. Sepsis Event Note (ED) - Evaluation Sepsis Screening Result: No Definite Risk - Focused Exam Vital Signs: Vital Signs Temp Pulse Resp BP Pulse Ox 09/30/20 12:00 97.3 F 99 20 109/70 98
[2020-09-30 13:14] LABS: BLOOD UREA NITROGEN,BUN 10 mg/dL (7.0-18.0); CARBON DIOXIDE,CO2 25.6 mmol/L (21.0-32.0); CHLORIDE,CL 103 mmol/L (98-107); GLUCOSE RANDOM 106 mg/dL (74-106); POTASSIUM,K 4.1 mmol/L (3.5-5.1); SODIUM,NA 138 mmol/L (136-145)
== END 2020-09-30 14:08 | disposition home or self-care (01) ==
LOC: MW.ED 11:48
DX: G89.29 Other chronic pain (principal); M54.5 Low back pain; E66.9 Obesity, unspecified; E11.9 Type 2 diabetes mellitus without complications; Z88.8 Allergy status to other drugs, medicaments and biological substances; Z88.6 Allergy status to analgesic agent; Z72.0 Tobacco use; Z79.84 Long term (current) use of oral hypoglycemic drugs; Z68.41 Body mass index [BMI] 40.0-44.9, adult
CPT/HCPCS: 36415; 80053; 81003; 81025; 85025; 85652; 86140; 99283; A9270; 99284

== ENCOUNTER 2021-04-11 17:25 | Emergency (ER) | payer MEDICAID ==
[2021-04-11 19:32] LABS: BLOOD UREA NITROGEN,BUN 9 mg/dL (7.0-18.0); CARBON DIOXIDE,CO2 22.8 mmol/L (21.0-32.0); CHLORIDE,CL 103 mmol/L (98-107); GLUCOSE RANDOM 96 mg/dL (74-106); POTASSIUM,K 3.9 mmol/L (3.5-5.1); SODIUM,NA 137 mmol/L (136-145)
--- NOTE | 2021-04-11 20:21 | EDM.PDOC ---
ED HPI GENERAL MEDICAL PROBLEM - General Chief Complaint: Back Pain or Injury Stated Complaint: NUMBNESS Time Seen by Provider: 04/11/21 18:24 Source of Information: Reports: Patient History Limitations: Reports: No Limitations - History of Present Illness INITIAL COMMENTS - FREE TEXT/NARRATIVE: HISTORY AND PHYSICAL: History of present illness: Patient is an otherwise healthy 35-year-old female who presents emergency room today with concern of generalized pins/needles/numbness area that has been ongoing since I had last seen and personally evaluated the patient in September year. Patient states that since I had last seen her on 09/30/2020, she has not since followed up with anybody in regards to her MRI imaging and states that she "does not know her MRI results ". Patient states that she went to go make an appointment with Betina Valle after she had the imaging done and states that she was told that she was "fired as a patient "as she had 3 missed appointments and did not show up for. Patient states that she did not aware that she even missed an appointment. Patient states that since then, she has had progressive czzi-iex-ulbtgjf sensation but states now over the past 2 to 3 weeks, this has become more prominent to the point that it is affecting her daily living. Patient states that the foof-sge-zraedxy/numbness sensation affects her complete front bilateral legs, her torso up to her breast but does not involve her breast or armpit area, and involves both of her upper extremities. Patient states that she is able to move all extremities and does not have any motor deficits and states does not involve her neck her face. Patient denies any head trauma or injury. Patient states that she still has her chronic low back pain associated with her symptoms but states that this is not new or changed. Patient states that she has had issues with urinary incontinence over the past several months and states that at times she will be in a grocery store not able to get to the bathroom, but states that this has not progressed acutely and has been going on for quite some time. Patient denies any loss of retention or retention of bowel bladder function that is new or saddle anesthesia. Patient denies fever, chills, chest pain, shortness of breath, or cough. Denies headache, neck stiff ness, change in vision, syncope, or near syncope. Denies nausea, vomiting, abdominal pain, diarrhea, constipation, or dysuria. Has not noted any blood in urine or stool. Patient has been eating and drinking appropriately. Review of systems: As per history of present illness and below otherwise all systems reviewed and negative. Past medical history: As per history of present illness and as reviewed below otherwise noncontributory. Surgical history: As per history of present illness and as reviewed below otherwise noncontributory. Social history: See social history for further information Family history: As per history of present illness and as reviewed below otherwise noncontributory. Physical exam: General: Patient is alert, oriented, and in no acute distress. Patient sitting comfortably on exam table. Vitals stable and reviewed by me. HEENT: Atraumatic, normocephalic, pupils equal and reactive bilaterally, negative for conjunctival pallor or scleral icterus, mucous membranes moist, throat clear, neck supple, nontender, trachea midline. No drooling or trismus noted. No meningeal signs. No hot potato voice noted. Lungs: Clear to auscultation, breath sounds equal bilaterally, chest nontender. Heart: S1S2, regular rate and rhythm without overt murmur Abdomen: Soft, nondistended, nontender. Negative for masses or hepatosplenomegaly. Negative for costovertebral tenderness. Pelvis: Stable nontender. Genitourinary: Deferred. Rectal: Deferred. Skin: Intact, warm, dry. No lesions or rashes noted. Extremities: Atraumatic, negative for cords or calf pain. Neurovascular unremarkable. Neuro: Awake, alert, oriented. Cranial nerves II through XII unremarkable. Cerebellum unremarkable. Motor and sensory unremarkable throughout. Exam nonfocal. Medical Decision Making: Patient is an otherwise healthy 35-year-old female who presents emergency room today with concern of generalized paresthesias that do not involve the neck, face, breasts or axilla, but otherwise are elsewhere on the body. Upon arrival to the ED, patient is vitally stable and well-appearing on exam. Patient does have full range of motion of all extremities, full spine ROM, and all reflexes are intact and equal. Patient is able to ambulate today in the ED but does states she "feels off balance "with ambulation. Patient is able to feel sensation to all extremities that she describes as "altered "sensation but is aware of me touching her all over. Will obtain basic lab work at this time. On chart review, patient was having low back pain with some right sided leg numbness that I had seen and evaluated her for on September 30 of this year. At that time, I had ordered an outpatient MRI of the thoracic and lumbar spine. Thoracic spine MRI on 10/05/2020 shows normal alignment. No fractures. Normal cord signal. No abnormal enhancement. Thoracic spondylosis. At T5-6, mild narrowing of the spinal canal. At T7-T8, mild narrowing of the spinal canal. At T8-9, mild narrowing of the spinal canal. No spinal canal or foraminal narrowing at the remaining levels of the thoracic spine. Lumbar spine MRI shows normal alignment. No fractures. At L4-L5 stable disc degeneration posterior disc bulge. Small central disc protrusion. Mild narrowing of the spinal canal. No spinal canal or neural foraminal narrowing at the remaining levels. Patient states that she has not followed up with his results with any provider since my last evaluation. She states that her symptoms have progressively worsened since this visit but has not seen any other provider for further diagnostic evaluation. At this time, I do feel that patient requires further evaluation and imaging follow-up with neurology and her primary care provider. I did call and speak to the neurologist on-call for Mirella Elizondo Dr, Medel, and thoroughly discussed patient's case. She also agrees that patient requires neurology follow-up but does feel this can be done on an outpatient basis with possible concern for MS. She does not feel that there is any acute neurological concern. On reevaluation of patient, she remains vitally stable and comfortable throughout stay in ED. Strict return precautions thoroughly discussed with patient. Discussed importance for follow-up with both neurology and her primary care provider. Voices understanding and is agreeable to plan of care. Denies any further questions or concerns at this time. Diagnostics: CBC, CMP, UA, serum hCG Therapeutics: None Prescription: None Impression: Paresthesias, generalized, unspecified Plan: 1. Follow-up with a neurologist and your primary care provider as discussed. Call the clinics in the morning to establish an appointment time as discussed. Return to the ED as needed and as discussed. Definitive disposition and diagnosis as appropriate pending reevaluation and review of above. Bilateral Leg Pain Score (Numeric/FACES): 6 Bilateral Hand Pain Score (Numeric/FACES): 6 - Related Data Allergies Allergy/AdvReac Type Severity Reaction Status Date / Time celecoxib Allergy Itching Verified 04/11/21 17:42 NSAIDS (Non-Steroidal Allergy Rash Verified 04/11/21 17:42 Anti-Inflamma Home Meds: Home Meds Escitalopram [Lexapro] 20 mg PO DAILY 10/30/18 [History] metFORMIN [Glucophage] 750 mg PO DAILY 03/17/20 [History] Famotidine 1 tab PO DAILY 04/22/20 [History] Calcium Carb/Magnesium Oxid/D3 [Calcium Magnesium + D] 1 cap PO DAILY 09/24/20 [History] Ergocalciferol (Vitamin D2) [Vitamin D2] 50,000 unit PO 09/24/20 [History] Past Medical History HEENT History: Reports: Impaired Vision Other HEENT History: wears glasses Cardiovascular History: Reports: None Respiratory History: Reports: None Gastrointestinal History: Reports: Cholelithiasis, GERD Genitourinary History: Reports: None [employer] History: Reports: Musculoskeletal History: Reports: Back Pain, Chronic, Fracture Other Musculoskeletal History: right arm Neurological History: Reports: None Psychiatric History: Reports: Anxiety, Depression Endocrine/Metabolic History: Reports: Diabetes, Type II, Obesity/BMI 30+ Hematologic History: Reports: Anemia Immunologic History: Reports: None Oncologic (Cancer) History: Reports: None Dermatologic History: Reports: None - Infectious Disease History Infectious Disease History: Reports: None - Past Surgical History Head Surgeries/Procedures: Reports: None HEENT Surgical History: Reports: Tonsillectomy Cardiovascular Surgical History: Reports: None Respiratory Surgical History: Reports: None GI Surgical History: Reports: Cholecystectomy Female Surgical History: Reports: Section, Other (See Below), Tubal Ligation Other Female Surgeries/Procedures: states had laparoscopy for removal of ovarian cysts Endocrine Surgical History: Reports: None Neurological Surgical History: Reports: None Musculoskeletal Surgical History: Reports: None Oncologic Surgical History: Reports: None Dermatological Surgical History: Reports: None Social & Family History - Family History Family Medical History: No Pertinent Family History - Tobacco Use Tobacco Use Status *Q: Never Tobacco User - Caffeine Use Caffeine Use: Reports: Coffee, Energy Drinks, Soda, Tea - Recreational Drug Use Recreational Drug Use: No ED ROS GENERAL - Review of Systems Review Of Systems: Comprehensive ROS is negative, except as noted in HPI. ED EXAM, GENERAL - Physical Exam Exam: See Below (See dictation) Course - Vital Signs Last Recorded V/S: Last Vital Signs Temp 97.4 F 04/11/21 17:44 Pulse 67 04/11/21 20:51 Resp 18 04/11/21 20:51 BP 128/59 L 04/11/21 20:51 Pulse Ox 97 04/11/21 20:51 - Orders/Labs/Meds Labs: Laboratory Tests 04/11/21 04/11/21 04/11/21 Range/Units 19:00 19:00 19:00 WBC 11.61 H (4.0-11.0) K/uL RBC 4.19 L (4.30-5.90) M/uL Hgb 12.9 (12.0-16.0) g/dL Hct 38.7 (36.0-46.0) % MCV 92.4 (80.0-98.0) fL MCH 30.8 (27.0-32.0) pg MCHC 33.3 (31.0-37.0) g/dL RDW Std Deviation 44.2 (28.0-62.0) fl RDW Coeff of Moses 13 (11.0-15.0) % Plt Count 261 (150-400) K/uL MPV 10.60 (7.40-12.00) fL Neut % (Auto) 68.0 (48.0-80.0) % Lymph % (Auto) 20.7 (16.0-40.0) % Lipscomb % (Auto) 9.6 (0.0-15.0) % Eos % (Auto) 1.4 (0.0-7.0) % Baso % (Auto) 0.3 (0.0-1.5) % Neut # (Auto) 7.9 H (1.4-5.7) K/uL Lymph # (Auto) 2.4 (0.6-2.4) K/uL Lipscomb # (Auto) 1.1 H (0.0-0.8) K/uL Eos # (Auto) 0.2 (0.0-0.7) K/uL Baso # (Auto) 0.0 (0.0-0.1) K/uL Nucleated RBC % 0.0 /100WBC Nucleated RBCs # 0 K/uL Sodium 137 (136-145) mmol/L Potassium 3.9 (3.5-5.1) mmol/L Chloride 103 (98-107) mmol/L Carbon Dioxide 22.8 (21.0-32.0) mmol/L BUN 9 (7.0-18.0) mg/dL Creatinine 0.8 (0.6-1.0) mg/dL Est Cr Clr Drug Dosing 77.63 mL/min Estimated GFR (MDRD) > 60.0 ml/min Glucose 96 (74-106) mg/dL Calcium 8.7 (8.5-10.1) mg/dL Total Bilirubin 0.2 (0.2-1.0) mg/dL AST 4 L (15-37) IU/L ALT 25 (14-63) IU/L Alkaline Phosphatase 84 (46-116) U/L Total Protein 8.0 (6.4-8.2) g/dL Albumin 3.4 (3.4-5.0) g/dL Globulin 4.6 H (2.6-4.0) g/dL Albumin/Globulin Ratio 0.7 L (0.9-1.6) TSH, Ultra Sensitive (0.36-3.74) uIU/mL HCG, Qual NEGATIVE (NEG) 04/11/21 Range/Units 19:00 WBC (4.0-11.0) K/uL RBC (4.30-5.90) M/uL Hgb (12.0-16.0) g/dL Hct (36.0-46.0) % MCV (80.0-98.0) fL MCH (27.0-32.0) pg MCHC (31.0-37.0) g/dL RDW Std Deviation (28.0-62.0) fl RDW Coeff of Moses (11.0-15.0) % Plt Count (150-400) K/uL MPV (7.40-12.00) fL Neut % (Auto) (48.0-80.0) % Lymph % (Auto) (16.0-40.0) % Lipscomb % (Auto) (0.0-15.0) % Eos % (Auto) (0.0-7.0) % Baso % (Auto) (0.0-1.5) % Neut # (Auto) (1.4-5.7) K/uL Lymph # (Auto) (0.6-2.4) K/uL Lipscomb # (Auto) (0.0-0.8) K/uL Eos # (Auto) (0.0-0.7) K/uL Baso # (Auto) (0.0-0.1) K/uL Nucleated RBC % /100WBC Nucleated RBCs # K/uL Sodium (136-145) mmol/L Potassium (3.5-5.1) mmol/L Chloride (98-107) mmol/L Carbon Dioxide (21.0-32.0) mmol/L BUN (7.0-18.0) mg/dL Creatinine (0.6-1.0) mg/dL Est Cr Clr Drug Dosing mL/min Estimated GFR (MDRD) ml/min Glucose (74-106) mg/dL Calcium (8.5-10.1) mg/dL Total Bilirubin (0.2-1.0) mg/dL AST (15-37) IU/L ALT (14-63) IU/L Alkaline Phosphatase (46-116) U/L Total Protein (6.4-8.2) g/dL Albumin (3.4-5.0) g/dL Globulin (2.6-4.0) g/dL Albumin/Globulin Ratio (0.9-1.6) TSH, Ultra Sensitive 3.03 (0.36-3.74) uIU/mL HCG, Qual (NEG) Departure - Departure Time of Disposition: 20:21 Disposition: Home, Self-Care 01 Clinical Impression: Paresthesias - Discharge Information Referrals: PCP,None [Primary Care Provider] - Forms: ED Department Discharge Additional Instructions: The following information is given to patients seen in the emergency department who are being discharged to home. This information is to outline your options for follow-up care. We provide all patients seen in our emergency department with a follow-up referral. The need for follow-up, as well as the timing and circumstances, are variable depending upon the specifics of your emergency department visit. If you don't have a primary care physician on staff, we will provide you with a referral. We always advise you to contact your personal physician following an emergency department visit to inform them of the circumstance of the visit and for follow-up with them and/or the need for any referrals to a consulting specialist. The emergency department will also refer you to a specialist when appropriate. This referral assures that you have the opportunity for follow-up care with a specialist. All of these measure are taken in an effort to provide you with optimal care, which includes your follow-up. Under all circumstances we always encourage you to contact your private physician who remains a resource for coordinating your care. When calling for follow-up care, please make the office aware that this follow-up is from your recent emergency room visit. If for any reason you are refused follow-up, please contact the [facility] Emergency Department at and asked to speak to the emergency department charge nurse. [facility] [address] [place] [id number] [address] [facility] [address] [place] [address], [address] [place] [address] 1. Follow-up with a primary care provider and neurologist as discussed. Return to the ED as needed and as discussed. Sepsis Event Note (ED) - Evaluation Sepsis Screening Result: No Definite Risk - Focused Exam Vital Signs: Vital Signs Temp Pulse Resp BP Pulse Ox 04/11/21 20:51 67 18 128/59 L 97 04/11/21 19:10 69 18 124/76 99 04/11/21 17:44 97.4 F 73 16 138/71 98
== END 2021-04-11 20:52 | disposition home or self-care (01) ==
LOC: MW.ED 17:25
DX: R20.2 Paresthesia of skin (principal); E11.9 Type 2 diabetes mellitus without complications; E66.9 Obesity, unspecified; Z68.41 Body mass index [BMI] 40.0-44.9, adult; Z88.1 Allergy status to other antibiotic agents; Z88.8 Allergy status to other drugs, medicaments and biological substances
CPT/HCPCS: 36415; 80053; 84443; 84703; 85025; 99284

== ENCOUNTER 2021-06-23 06:48 | Inpatient (IN) | payer MEDICAID ==
[2021-06-23] MEDS ORDERED: Morphine 4 MG/ML VIAL IVPUSH ONE ×2 (07:32→10:11)
[2021-06-23] MEDS ORDERED: Sodium Chloride 0.9% 2.5 ML Syringe FLUSH PRN ×2 (07:32→10:44)
[2021-06-23] MEDS ORDERED: Sodium Chloride 0.9% 10 ML Syringe FLUSH PRN ×2 (07:32→10:44)
[2021-06-23] MEDS ORDERED: Ondansetron 4 MG/2 ML SDV IVPUSH ONE (07:32)
[2021-06-23] MEDS ORDERED: Lactated Ringers 1,000 ML IV ONE (07:34)
[2021-06-23] MEDS ORDERED: Iopamidol 755 MG/ML 500 ML Multipack Bottle IVPUSH ONE (08:28)
[2021-06-23 08:42] LABS: CARBON DIOXIDE,CO2 26.8 mmol/L (21.0-32.0); POTASSIUM,K 4.2 mmol/L (3.5-5.1)
[2021-06-23] MEDS ORDERED: cefTRIAXone 2 GM in Sodium Chloride 0.9% 100 ML IV ONE (09:04)
[2021-06-23] MEDS ORDERED: Piperacillin/Tazobactam 3.375 GM in Sodium Chloride 0.9% 50 ML IV ONE (09:09)
[2021-06-23] MEDS ORDERED: cefTRIAXone 2 GM in Premix Bag 1 BAG IV ONE (09:12)
[2021-06-23] MEDS ORDERED: Ondansetron 4 MG/2 ML SDV IVPUSH PRN (11:00)
[2021-06-23] MEDS: Lactated Ringers 1,000 ML IV SCH ×2 (11:43→21:28)
[2021-06-23] MEDS: Enoxaparin 40 MG/0.4 ML Syringe SUBCUT SCH (11:44)
[2021-06-23] MEDS: Morphine 4 MG/ML VIAL IVPUSH PRN ×4 (13:59→23:59)
[2021-06-23] MEDS ORDERED: Glucagon,Human Recombinant 1 MG Vial IM PRN (15:27)
[2021-06-23] MEDS ORDERED: 50% Dextrose in Water 50 ML Syringe IVPUSH PRN (15:27)
[2021-06-23] MEDS: oxyCODONE 5 MG Tab PO PRN (16:12)
[2021-06-23] MEDS: Insulin Aspart 100 Units/ML 3 ML Pen SUBCUT SCH (18:15)
[2021-06-24] MEDS: Acetaminophen 325 MG Tab PO PRN ×3 (03:26→22:43)
[2021-06-24] MEDS: oxyCODONE 5 MG Tab PO PRN ×4 (03:27→22:43)
[2021-06-24] MEDS: Morphine 4 MG/ML VIAL IVPUSH PRN ×4 (05:50→20:39)
[2021-06-24] MEDS: Lactated Ringers 1,000 ML IV SCH ×3 (05:51→22:46)
[2021-06-24] MEDS: Insulin Aspart 100 Units/ML 3 ML Pen SUBCUT SCH ×3 (07:42→18:18)
[2021-06-24 08:34] LABS: BLOOD UREA NITROGEN,BUN 13 mg/dL (7.0-18.0); CARBON DIOXIDE,CO2 25.7 mmol/L (21.0-32.0); CHLORIDE,CL 100 mmol/L (98-107); GLUCOSE RANDOM 103 mg/dL (74-106); POTASSIUM,K 3.7 mmol/L (3.5-5.1); SODIUM,NA 134 mmol/L (136-145)
[2021-06-24] MEDS: Escitalopram 10 MG Tab PO SCH (09:34)
[2021-06-24] MEDS: Famotidine 20 MG Tab PO SCH (09:34)
[2021-06-24] MEDS: cefTRIAXone 2 GM in Premix Bag 1 BAG IV SCH (09:40)
[2021-06-24] MEDS: Enoxaparin 40 MG/0.4 ML Syringe SUBCUT SCH (10:22)
[2021-06-25] MEDS ORDERED: Melatonin 3 MG Tab PO ONE (00:24)
[2021-06-25] MEDS: Morphine 4 MG/ML VIAL IVPUSH PRN ×7 (00:57→20:47)
[2021-06-25] MEDS: Famotidine 20 MG Tab PO SCH (08:45)
[2021-06-25] MEDS: Escitalopram 10 MG Tab PO SCH (08:45)
[2021-06-25] MEDS: Lactated Ringers 1,000 ML IV SCH ×3 (08:52→18:38)
[2021-06-25] MEDS: cefTRIAXone 2 GM in Premix Bag 1 BAG IV SCH (08:52)
[2021-06-25 08:59] LABS: BLOOD UREA NITROGEN,BUN 6 mg/dL (7.0-18.0); CARBON DIOXIDE,CO2 28.8 mmol/L (21.0-32.0); CHLORIDE,CL 99 mmol/L (98-107); GLUCOSE RANDOM 103 mg/dL (74-106); POTASSIUM,K 4.3 mmol/L (3.5-5.1); SODIUM,NA 140 mmol/L (136-145)
[2021-06-25] MEDS: Insulin Aspart 100 Units/ML 3 ML Pen SUBCUT SCH ×3 (10:40→18:11)
[2021-06-25] MEDS: Enoxaparin 40 MG/0.4 ML Syringe SUBCUT SCH (11:05)
[2021-06-25] MEDS: oxyCODONE 5 MG Tab PO PRN (22:51)
[2021-06-25] MEDS: Acetaminophen 325 MG Tab PO PRN (22:51)
[2021-06-26] MEDS: Morphine 4 MG/ML VIAL IVPUSH PRN ×2 (01:31→09:25)
[2021-06-26] MEDS: Lactated Ringers 1,000 ML IV SCH (02:49)
[2021-06-26] MEDS: Acetaminophen 325 MG Tab PO PRN ×4 (04:53→22:51)
[2021-06-26] MEDS: oxyCODONE 5 MG Tab PO PRN ×4 (04:53→19:58)
[2021-06-26] MEDS: Insulin Aspart 100 Units/ML 3 ML Pen SUBCUT SCH ×3 (07:29→17:40)
[2021-06-26 07:59] LABS: BLOOD UREA NITROGEN,BUN 8 mg/dL (7.0-18.0); CHLORIDE,CL 99 mmol/L (98-107); GLUCOSE RANDOM 103 mg/dL (74-106); POTASSIUM,K 3.8 mmol/L (3.5-5.1); SODIUM,NA 138 mmol/L (136-145)
[2021-06-26] MEDS: Escitalopram 10 MG Tab PO SCH (09:24)
[2021-06-26] MEDS: Famotidine 20 MG Tab PO SCH (09:25)
[2021-06-26] MEDS: cefTRIAXone 2 GM in Premix Bag 1 BAG IV SCH (09:25)
[2021-06-26] MEDS: Enoxaparin 40 MG/0.4 ML Syringe SUBCUT SCH (11:52)
[2021-06-26] MEDS ORDERED: Levofloxacin 750 MG Tab PO SCH (12:00)
[2021-06-26] MEDS: Iron Polysaccharides Complex 150 MG Cap PO SCH (14:11)
[2021-06-26] MEDS ORDERED: Cyclobenzaprine 10 MG Tab PO ONE (18:15)
[2021-06-27] MEDS: oxyCODONE 5 MG Tab PO PRN ×4 (00:15→13:34)
[2021-06-27] MEDS: Acetaminophen 325 MG Tab PO PRN ×2 (05:05→12:13)
[2021-06-27 07:15] LABS: BLOOD UREA NITROGEN,BUN 8 mg/dL (7.0-18.0); CARBON DIOXIDE,CO2 28.4 mmol/L (21.0-32.0); CHLORIDE,CL 102 mmol/L (98-107); GLUCOSE RANDOM 90 mg/dL (74-106); POTASSIUM,K 4.1 mmol/L (3.5-5.1); SODIUM,NA 139 mmol/L (136-145)
[2021-06-27] MEDS: Insulin Aspart 100 Units/ML 3 ML Pen SUBCUT SCH ×3 (08:00→17:50)
[2021-06-27] MEDS ORDERED: Levofloxacin 750 MG Tab PO SCH (09:00)
[2021-06-27] MEDS: Iron Polysaccharides Complex 150 MG Cap PO SCH (09:31)
[2021-06-27] MEDS: Famotidine 20 MG Tab PO SCH (09:31)
[2021-06-27] MEDS: Escitalopram 10 MG Tab PO SCH (09:31)
== END 2021-06-27 17:17 | disposition home or self-care (01) | DRG 689 ==
LOC: MW.ED 06:48 → MW.MS 09:41
PROVIDERS: ADMIT Student in an Organized Health Care Education/Training Program; ATTEND Student in an Organized Health Care Education/Training Program
DX: N10 Acute pyelonephritis (principal); U07.1 COVID-19; Z68.42 Body mass index [BMI] 45.0-49.9, adult; D50.9 Iron deficiency anemia, unspecified; E66.9 Obesity, unspecified; H54.7 Unspecified visual loss; K21.9 Gastro-esophageal reflux disease without esophagitis; F41.9 Anxiety disorder, unspecified; F32.A Depression, unspecified; M54.9 Dorsalgia, unspecified; M19.90 Unspecified osteoarthritis, unspecified site; G89.29 Other chronic pain; Z79.899 Other long term (current) drug therapy; Z90.49 Acquired absence of other specified parts of digestive tract; Z79.84 Long term (current) use of oral hypoglycemic drugs
CPT/HCPCS: 36415; 74177; 74177-26; 80048; 80053; 81001; 82607; 82728; 82746; 82947; 83550; 83605; 83690; 85025; 85045; 87040; 87086; 87088; 87186; 96374; 96375; 99285-25; A9270-GY; J0696; J1650; J2270; J2405; J7120; U0002

== ENCOUNTER 2022-07-16 13:34 | Emergency (ER) | payer MEDICAID ==
[2022-07-16] MEDS ORDERED: oxyCODONE 5 MG Tab PO ONE (13:52)
[2022-07-16] MEDS ORDERED: Ondansetron 4 MG Tab.DIS PO ONE (13:54)
== END 2022-07-16 15:53 | disposition home or self-care (01) ==
LOC: MW.ED 13:34
DX: M25.552 Pain in left hip (principal); E11.9 Type 2 diabetes mellitus without complications; E66.9 Obesity, unspecified; Z68.41 Body mass index [BMI] 40.0-44.9, adult; Z88.1 Allergy status to other antibiotic agents; Z88.6 Allergy status to analgesic agent; Z79.899 Other long term (current) drug therapy
CPT/HCPCS: 72192; 80305; 81001; 81025; 99284; A9270; 99283

== ENCOUNTER 2022-10-05 16:22 | Observation (INO) | payer MEDICAID ==
[2022-10-05] MEDS ORDERED: Sodium Chloride 0.9% 1,000 ML IV ONE ×2 (16:54→20:25)
[2022-10-05] MEDS ORDERED: Ondansetron 4 MG/2 ML SDV IVPUSH ONE (16:54)
[2022-10-05] MEDS ORDERED: Morphine 4 MG/ML Syringe IVPUSH ONE ×2 (16:54→19:28)
[2022-10-05 17:21] LABS: BASOPHILS PERCENT AUTO 0.1 % (0.0-1.5); EOSINOPHILS ABSOLUTE AUTO 0.1 K/uL (0.0-0.7); EOSINOPHILS PERCENT AUTO 0.5 % (0.0-7.0); HEMATOCRIT 38.2 % (36.0-46.0); HEMOGLOBIN 12.8 g/dL (12.0-16.0); LYMPHOCYTES ABSOLUTE AUTO 1.9 K/uL (0.6-2.4); LYMPHOCYTES PERCENT AUTO 12.5 % (16.0-40.0); MEAN CORPUSCULAR HGB CONC 33.5 g/dL (31.0-37.0); MEAN CORPUSCULAR VOLUME 89.5 fL (80.0-98.0); MONOCYTES PERCENT AUTO 13.1 % (0.0-15.0); NEUTROPHILS ABSOLUTE AUTO 11.4 K/uL (1.4-5.7); NEUTROPHILS PERCENT AUTO 73.8 % (48.0-80.0); NRBC ABSOLUTE 0 K/uL; PLATELET COUNT,PLT 214 K/uL (150-400); RED BLOOD CELL COUNT 4.27 M/uL (4.30-5.90); WHITE BLOOD CELL COUNT,WBC 15.46 K/uL (4.0-11.0)
[2022-10-05] MEDS ORDERED: cefTRIAXone 1 GM in Sodium Chloride 0.9% 50 ML IV ONE (17:52)
[2022-10-05 17:53] LABS: APPEARANCE,URINE SLT CLOUDY; BILIRUBIN,URINE NEGATIVE (NEGATIVE); COLOR,URINE YELLOW; GLUCOSE,URINE NEGATIVE (NEGATIVE); KETONES,URINE NEGATIVE (NEGATIVE); LEUKOCYTE ESTERASE,URINE SMALL (NEGATIVE); NITRITE,URINE POSITIVE (NEGATIVE); OCCULT BLOOD,URINE TRACE-INTACT (NEGATIVE); PROTEIN,URINE TRACE mg/dL (NEGATIVE); UROBILINOGEN,URINE 0.2 EU/dL (<2.0)
[2022-10-05 17:58] LABS: A/G RATIO 0.7 (0.9-1.6); ALBUMIN 3.1 g/dL (3.4-5.0); BILIRUBIN TOTAL 0.4 mg/dL (0.2-1.0); CALCIUM 8.7 mg/dL (8.5-10.1); CARBON DIOXIDE,CO2 23.4 mmol/L (21.0-32.0); CREATININE 0.8 mg/dL (0.6-1.0); EST CRCL DRUG DOSING (CG) 72.65 mL/min; POTASSIUM,K 3.3 mmol/L (3.5-5.1); PROTEIN TOTAL,TP 7.3 g/dL (6.4-8.2)
[2022-10-05] MEDS ORDERED: Iopamidol 755 MG/ML 500 ML Multipack Bottle IVPUSH ONE (18:13)
[2022-10-05 18:28] LABS: BACTERIA,URINE 2+ (NEGATIVE); EPITHELIAL CELLS,URINE MODERATE (NONE-FEW); RBC,URINE 0-5 (0-2/HPF)
[2022-10-05] MEDS ORDERED: Glucagon,Human Recombinant 1 MG Vial IM PRN (22:10)
[2022-10-05] MEDS ORDERED: 50% Dextrose in Water 50 ML Syringe IVPUSH PRN (22:10)
[2022-10-05] MEDS ORDERED: Acetaminophen 325 MG Tab PO PRN (22:29)
[2022-10-05] MEDS ORDERED: NS with KCl 40mEq 1,000 ML IV SCH (22:30)
[2022-10-05] MEDS: Morphine 2 MG/ML SYRINGE IVPUSH PRN (22:55)
[2022-10-06] MEDS: Enoxaparin 40 MG/0.4 ML Syringe SUBCUT SCH ×2 (00:24→22:53)
[2022-10-06] MEDS: Ibuprofen 400 MG Tab PO PRN ×3 (00:55→20:48)
[2022-10-06] MEDS: Sodium Chloride 0.9% 1,000 ML IV SCH ×3 (04:38→22:53)
[2022-10-06 06:17] LABS: BASOPHILS PERCENT AUTO 0.1 % (0.0-1.5); EOSINOPHILS ABSOLUTE AUTO 0.1 K/uL (0.0-0.7); EOSINOPHILS PERCENT AUTO 0.7 % (0.0-7.0); HEMATOCRIT 34.5 % (36.0-46.0); HEMOGLOBIN 11.1 g/dL (12.0-16.0); LYMPHOCYTES ABSOLUTE AUTO 2.1 K/uL (0.6-2.4); LYMPHOCYTES PERCENT AUTO 14.5 % (16.0-40.0); MEAN CORPUSCULAR HEMOGLOBIN 29.1 pg (27.0-32.0); MEAN CORPUSCULAR HGB CONC 32.2 g/dL (31.0-37.0); MEAN CORPUSCULAR VOLUME 90.3 fL (80.0-98.0); MONOCYTES PERCENT AUTO 14.2 % (0.0-15.0); NEUTROPHILS ABSOLUTE AUTO 10.1 K/uL (1.4-5.7); NEUTROPHILS PERCENT AUTO 70.5 % (48.0-80.0); NRBC ABSOLUTE 0 K/uL; PLATELET COUNT,PLT 188 K/uL (150-400); RED BLOOD CELL COUNT 3.82 M/uL (4.30-5.90); WHITE BLOOD CELL COUNT,WBC 14.33 K/uL (4.0-11.0)
[2022-10-06 06:34] LABS: CARBON DIOXIDE,CO2 22.6 mmol/L (21.0-32.0); CREATININE 0.7 mg/dL (0.6-1.0); EST CRCL DRUG DOSING (CG) 83.03 mL/min; POTASSIUM,K 3.5 mmol/L (3.5-5.1)
[2022-10-06] MEDS: Insulin Aspart 100 Units/ML 3 ML Pen SUBCUT SCH ×3 (07:52→17:01)
[2022-10-06] MEDS: Morphine 2 MG/ML SYRINGE IVPUSH PRN ×3 (11:45→22:53)
[2022-10-06] MEDS ORDERED: Ondansetron 4 MG/2 ML SDV IVPUSH PRN (11:47)
[2022-10-06] MEDS ORDERED: cefTRIAXone 1 GM in Sodium Chloride 0.9% 50 ML IV SCH (18:00)
[2022-10-06] MEDS: Escitalopram 10 MG Tab PO SCH (20:53)
[2022-10-07 05:29] LABS: BASOPHILS PERCENT AUTO 0.2 % (0.0-1.5); EOSINOPHILS ABSOLUTE AUTO 0.1 K/uL (0.0-0.7); EOSINOPHILS PERCENT AUTO 1.4 % (0.0-7.0); HEMATOCRIT 31.8 % (36.0-46.0); HEMOGLOBIN 10.3 g/dL (12.0-16.0); LYMPHOCYTES PERCENT AUTO 21.8 % (16.0-40.0); MEAN CORPUSCULAR HEMOGLOBIN 29.3 pg (27.0-32.0); MEAN CORPUSCULAR HGB CONC 32.4 g/dL (31.0-37.0); MEAN CORPUSCULAR VOLUME 90.6 fL (80.0-98.0); MONOCYTES ABSOLUTE AUTO 1.2 K/uL (0.0-0.8); MONOCYTES PERCENT AUTO 12.9 % (0.0-15.0); NEUTROPHILS ABSOLUTE AUTO 5.8 K/uL (1.4-5.7); NEUTROPHILS PERCENT AUTO 63.7 % (48.0-80.0); NRBC ABSOLUTE 0 K/uL; PLATELET COUNT,PLT 179 K/uL (150-400); RED BLOOD CELL COUNT 3.51 M/uL (4.30-5.90); WHITE BLOOD CELL COUNT,WBC 9.16 K/uL (4.0-11.0)
[2022-10-07 05:48] LABS: CALCIUM 7.9 mg/dL (8.5-10.1); CARBON DIOXIDE,CO2 24.2 mmol/L (21.0-32.0); CREATININE 0.7 mg/dL (0.6-1.0); EST CRCL DRUG DOSING (CG) 83.03 mL/min; POTASSIUM,K 3.5 mmol/L (3.5-5.1)
[2022-10-07] MEDS: Insulin Aspart 100 Units/ML 3 ML Pen SUBCUT SCH ×2 (06:50→11:48)
[2022-10-07] MEDS: Sodium Chloride 0.9% 1,000 ML IV SCH (07:45)
[2022-10-07] MEDS: Escitalopram 10 MG Tab PO SCH (10:06)
== END 2022-10-07 14:20 | disposition home or self-care (01) ==
LOC: MW.ED 16:22 → INTOOBSV 20:21 → MW.MS 20:21
PROVIDERS: ADMIT Internal Medicine; ATTEND Internal Medicine
DX: N12 Tubulo-interstitial nephritis, not specified as acute or chronic (principal); N39.0 Urinary tract infection, site not specified; K57.30 Diverticulosis of large intestine without perforation or abscess without bleeding; K21.9 Gastro-esophageal reflux disease without esophagitis; Z79.84 Long term (current) use of oral hypoglycemic drugs; Z79.899 Other long term (current) drug therapy; Z88.8 Allergy status to other drugs, medicaments and biological substances; Z88.6 Allergy status to analgesic agent; E66.9 Obesity, unspecified; Z90.710 Acquired absence of both cervix and uterus; Z90.49 Acquired absence of other specified parts of digestive tract; Z98.51 Tubal ligation status
CPT/HCPCS: 36415; 74177; 80048; 80053; 81001; 81025; 82947; 83690; 85025; 87086; 87088; 87186; 96365; 96375; 96376; 99285; A9270; J0696; J1650; J2270; J2405; J3490; J7030; Q9967; 96361; 96372; G0378

== ENCOUNTER 2023-04-09 22:28 | Emergency (ER) | payer MEDICAID ==
[2023-04-09] MEDS ORDERED: Acetaminophen/HYDROcodone 325-5 MG Tab PO ONE (23:46)
== END 2023-04-10 00:43 | disposition home or self-care (01) ==
LOC: MW.ED 22:28
DX: M25.552 Pain in left hip (principal); E11.9 Type 2 diabetes mellitus without complications; E66.9 Obesity, unspecified; Z79.84 Long term (current) use of oral hypoglycemic drugs; Z79.899 Other long term (current) drug therapy; Z90.49 Acquired absence of other specified parts of digestive tract; Z90.710 Acquired absence of both cervix and uterus; Z88.6 Allergy status to analgesic agent; Z68.36 Body mass index [BMI] 36.0-36.9, adult
CPT/HCPCS: 72192; 73552; 99284; A9270; 99283